=== PATIENT | male | born 1960 | race Hispanic/Latino ===

== ENCOUNTER 2018-01-31 10:22 | Emergency (ER) | payer SELFPAY ==
--- OUTSIDE RECORDS SUMMARY | 2018-01-31 10:24 | XMS REPORT | Clinical Summary ---
:1960 Author Organization [facility] Address [address] [place] [address] Phone Care Team Providers Name Role Phone Unavailable Primary Care Provider Unavailable Allergies No Known Allergies Current Medications Prescription Sig. Disp. Refills Start Date End Date Status metFORMIN Take by mouth 2 Active (GLUCOPHAGE) 500 MG (two) times daily tabletIndications: with breakfast type 2 diabetes and dinner Pt mellitus does not know what dose . aspirin 81 MG Take 1 tablet (81 90 tablet 0 04/22/2017 04/22/2018 Active chewable tablet mg total) by mouth daily. carvedilol (COREG) Take 1 tablet 180 tablet 1 04/21/2017 04/21/2018 Active 3.125 MG tablet (3.125 mg total) by mouth 2 (two) times daily. digoxin (LANOXIN) Take 1 tablet 90 tablet 1 04/22/2017 04/22/2018 Active 0.125 MG tablet (125 mcg total) by mouth daily. furosemide (LASIX) Take 1 tablet (20 90 tablet 1 04/22/2017 04/22/2018 Active 20 MG tablet mg total) by mouth daily. Active Problems Problem Noted Date Congestive heart failure (CHF) (HCC) 04/15/2017 Encounters Date Type Specialty Care Team Description 04/17/2017 Procedure Pass 04/17/2017 Surgery Codie R & L HEART CATH MD Mohsen ONLY - NO ANGIOS 04/15/2017 - Hospital Encounter Intensive Care Reuben Robles systolic 04/21/2017 MD Abran congestive heart failure (HCC) (Primary Dx);NSTEMI (non-ST elevated myocardial infarction) ([facility]);Type 2 diabetes mellitus without complication, without long-term current use of insulin ([facility]);Cardiomyopathy , unspecified type ([facility]) 04/15/2017 Orders Only General Internal Medicine after 01/30/2017 Social History Tobacco Use Types Packs/Day Years Used Date Never Smoker Smokeless Tobacco: Never Used Sex Assigned at Date Recorded Not on file Last Filed Vital Signs Vital Sign Reading Time Taken Blood Pressure 91/62 04/21/2017 7:40 PM [employer] Pulse 110 04/21/2017 7:40 PM [employer] Temperature 37.4 C (99.4 F) 04/21/2017 7:40 PM [employer] Respiratory Rate 22 04/21/2017 7:40 PM [employer] Oxygen Saturation 95% 04/21/2017 7:40 PM [employer] Inhaled Oxygen Concentration - - Weight 71.1 kg (156 lb 12 oz) 04/21/2017 3:00 AM [employer] Height 170.2 cm (5' 7") 04/15/2017 6:00 PM [employer] Body Mass Index 24.55 04/21/2017 3:00 AM [employer] Plan of Treatment Not on file Implants Implanted Type Area Gear Setter Device Expiration Model / Identifier Date Serial / Lot Closure Sys Perclose Progl 6fr [id number] - [id number] Cardiovascular N/A: PEREZ [id number] 05/15/2018 11372-78 / Implanted: Qty: 1 on 04/17/2017 by Mohsen Mackay MD [place] LAB:VASC DEV / Procedures Procedure Name Priority Date/Time Associated Diagnosis Comments R & L HEART CATH ONLY - 04/17/2017 2:30 PM [employer] chest pain NO ANGIOS after 01/30/2017 Results EKG-SCANNED (04/24/2017 12:10 PM)RHYTHM STRIP - SCAN (04/24/2017 12:10 PM) VASCULAR DIAGRAM -SCAN (04/24/2017 12:10 PM)POC-Glucose meter (04/21/2017 5:46 PM)Only the most recent of21 resultswithin the time period is included. Component Value Ref Range POC-Glucose Meter 142 (H)Comment: TESTED AT [address] 70 - 110 mg/[place] [id number] Specimen Performing Laboratory Blood [facility] [address] [address] CBC with platelet count + automated diff (04/21/2017 4:36 AM)Only the most recent of7 resultswithin the time period is included. Component Value Ref Range WBC 7.8 3.5 - 10.5 K/L RBC 4.21 (L) 4.63 - 6.08 M/L Hemoglobin 12.5 (L) 13.7 - 17.5 GM/DL Hematocrit 37.7 (L) 40.1 - 51.0 % MCV 89.5 79.0 - 92.2 fL MCH 29.7 25.7 - 32.2 pg MCHC 33.2 32.3 - 36.5 GM/DL RDW 14.8 (H) 11.6 - 14.4 % Platelets 210 150 - 450 K/CU MM MPV 10.3 9.4 - 12.4 fL nRBC 0 0 - 0 /100 WBC % Neutros 69 % % Lymphs 16 % % Monos 9 % % Eos 1 % % Baso 1 % # Neutros 5.38 1.78 - 5.38 K/L # Lymphs 1.25 (L) 1.32 - 3.57 K/L # Monos 0.66 0.30 - 0.82 K/L # Eos 0.06 0.04 - 0.54 K/L # Baso 0.09 (H) 0.01 - 0.08 K/L Immature Granulocytes-Relative 4 (H) 0 - 1 % Specimen Performing Laboratory Blood [address] [address] CBC with platelet count + automated diff (04/21/2017 4:36 AM)Only the most recent of7 resultswithin the time period is included. Specimen Performing Laboratory Blood Narrative The following orders were created for panel order CBC with platelet count + automated diff. Procedure Abnormality Status --------- ------ CBC with platelet count ...[[id number]]AbnormalFinal result Please view results for these tests on the individual orders. Magnesium (04/21/2017 4:36 AM)Only the most recent of7 resultswithin the time period is included. Component Value Ref Range Magnesium 1.9 1.6 - 2.6 mg/dL Specimen Performing Laboratory Blood [address] [address] Basic metabolic panel (04/21/2017 4:36 AM)Only the most recent of7 resultswithin the time period is included. Component Value Ref Range Sodium 135 (L) 136 - 145 meq/L Potassium 3.8 3.5 - 5.1 meq/L Chloride 106 98 - 107 meq/L CO2 22 22 - 29 meq/L BUN 7 7 - 21 mg/dL Creatinine 0.49 (L) 0.57 - 1.25 mg/dL Glucose 101 70 - 105 mg/dL Calcium 8.4 8.4 - 10.2 mg/dL EGFR 177Comment: ESTIMATED GFR IS NOT ACCURATE mL/min/1.73 sq m CREATININE CLEARANCE IN PREDICTING GLOMERULAR FILTRATION RATE. ESTIMATED GFR IS NOT APPLICABLE FOR DIALYSIS PATIENTS. Specimen Performing Laboratory Blood [facility] [address] [address] MR cardiac without & with IV contrast (04/19/2017 4:29 PM) Specimen Performing Laboratory [employer] RIS Narrative FINAL REPORT Cardiac MRI dated 19 April 2016 INDICATION: This is a 56 year-old male with known ischemic cardiomyopathy presents for assessment. Recent angiography demonstrate no coronary artery disease. This study is performed in order to quantitate left ventricular function, and to determine myocardial viability and damage. TECHNIQUE: Felicia ACHIEVAMRI scanner. Morphologic and dynamic cine imaging were performed in multiple projections before and after contrast administration.Thereafter, gadolinium was administered, which was followed by viability/scar imaging.Finally, flow quantification sequences were performed to determine the degree of valvular dysfunction. Please refer to the contrast sheet scanned in the CoPatient system for the amount and route of contrast given. Scanning blood pressure was 90/66. Patient weighs 155 pounds, with height of 67 inches. Body surface area is approximately 1.82 sq m. FINDINGS: The chest wall and mediastinum appears unremarkable.The pericardium and pulmonary arteries appear normal; no pericardial effusion is identified in the central pulmonary artery is normal in calibre. Limited imaging through the lungs reveals no gross abnormalities; some dependent changes are seen in the lung bases. The cardiac chambers demonstrate normal atrioventricular and ventriculoarterial concordance, and systemic and pulmonary venous return. The thoracic aorta is normal in course, calibre, and contour. There is no evidence of acute aortic pathology, such as dissection, intramural hematoma, or contained rupture. The left ventricle is normal and enlarged with severely global hypokinesis/akinesis.Quantitative values are as follows: WZG=514 cc; PQH=675 cc; stroke volume=63 cc; and ejection fraction=21%. Calculated absolute cardiac output=6.2 liters/min.Absolute left ventricular flwg=198 grams. Index NSQEX=869 cc/sq m confirming left ventricular enlargement. No evidence of hypertrophic cardiomyopathy or left ventricular noncompaction noted. The right ventricle is normal in size with mild systolic dysfunction. Quantitative values are as follows: TWN=248 cc; ESV=97 cc; and ejection fraction=34%. Cine imaging and flow quantification unremarkable mitral and aortic valve function. Trace tricuspid regurgitation is present. Viability/scar imaging reveals no evidence of prior myocardial infarction. However, there is some subtle linear mid myocardial hyperenhancement identified in the basal septum, consistent with interstitial fibrosis, a nonspecific finding, commonly seen in patient with dilated nonischemic cardiomyopathy. Furthermore, this is consistent with raised [place] myocardial T1 in the experimental T1 mapping sequence. There is substantial reduction in left ventricular long axis strain, -4.3% (normal MRI reference value for male is 16.5 + / - 2.2%). Ventricular thrombus is not present. Left atrial enlargement is identified. CONCLUSIONS: 1. The left ventricle is enlarged with severe global systolic dysfunction. Ejection fraction is quantified to be 21%. Quantitative left ventricular functional values are as described above. Viability/scar imaging is normal.There is no evidence of prior myocardial damage. No imaging evidence to suggest left ventricular noncompaction. There is mid myocardial hyperenhancement identified best seen in the basal septum indicating interstitial fibrosis, nonspecific finding in patient with cardiomyopathy. Substantial reduction in left ventricular long axis strain. 2.The right ventricle is normal in size with overall mild systolic dysfunction. Quantitative right ventricular functional veins as described above. 3.Normal aortic and mitral valvular function. 4.Left atrial enlargement. Signed: Niranjan Chand MD Report Verified Date/Time:04/19/2017 16:35:20 Reading Location: [facility] P047 Cardiology MRI Procedure Note Interface, External Ris In - 04/19/2017 4:37 PM COM[employer] FINAL REPORT Cardiac MRI dated 19 April 2016 INDICATION: This is a 56 year-old male with known ischemic cardiomyopathy presents for assessment. Recent angiography demonstrate no coronary artery disease. This study is performed in order to quantitate left ventricular function, and to determine myocardial viability and damage. TECHNIQUE: Felicia DishOpinion MRI scanner. Morphologic and dynamic cine imaging were performed in multiple projections before and after contrast administration. Thereafter, gadolinium was administered, which was followed by viability/scar imaging. Finally, flow quantification sequences were performed to determine the degree of valvular dysfunction. Please refer to the contrast sheet scanned in the EPIC system for the amount and route of contrast given. Scanning blood pressure was 90/66. Patient weighs 155 pounds, with height of 67 inches. Body surface area is approximately 1.82 sq m. FINDINGS: The chest wall and mediastinum appears unremarkable. The pericardium and pulmonary arteries appear normal; no pericardial effusion is identified in the central pulmonary artery is normal in calibre. Limited imaging through the lungs reveals no gross abnormalities; some dependent changes are seen in the lung bases. The cardiac chambers demonstrate normal atrioventricular and ventriculoarterial concordance, and systemic and pulmonary venous return. The thoracic aorta is normal in course, calibre, and contour. There is no evidence of acute aortic pathology, such as dissection, intramural hematoma, or contained rupture. The left ventricle is normal and enlarged with severely global hypokinesis/akinesis. Quantitative values are as follows: YON=262 cc; BLR=306 cc; stroke volume=63 cc; and ejection fraction=21%. Calculated absolute cardiac output=6.2 liters/min. Absolute left ventricular cpva=681 grams. Index YHBMI=417 cc/sq m confirming left ventricular enlargement. No evidence of hypertrophic cardiomyopathy or left ventricular noncompaction noted. The right ventricle is normal in size with mild systolic dysfunction. Quantitative values are as follows: CRE=770 cc; ESV=97 cc; and ejection fraction=34%. Cine imaging and flow quantification unremarkable mitral and aortic valve function. Trace tricuspid regurgitation is present. Viability/scar imaging reveals no evidence of prior myocardial infarction. However, there is some subtle linear mid myocardial hyperenhancement identified in the basal septum, consistent with interstitial fibrosis, a nonspecific finding, commonly seen in patient with dilated nonischemic cardiomyopathy. Furthermore, this is consistent with raised [place] myocardial T1 in the experimental T1 mapping sequence. There is substantial reduction in left ventricular long axis strain, -4.3% (normal MRI reference value for male is 16.5 + / - 2.2%). Ventricular thrombus is not present. Left atrial enlargement is identified. CONCLUSIONS: 1. The left ventricle is enlarged with severe global systolic dysfunction. Ejection fraction is quantified to be 21%. Quantitative left ventricular functional values are as described above. Viability/scar imaging is normal. There is no evidence of prior myocardial damage. No imaging evidence to suggest left ventricular noncompaction. There is mid myocardial hyperenhancement identified best seen in the basal septum indicating interstitial fibrosis, nonspecific finding in patient with cardiomyopathy. Substantial reduction in left ventricular long axis strain. 2. The right ventricle is normal in size with overall mild systolic dysfunction. Quantitative right ventricular functional veins as described above. 3. Normal aortic and mitral valvular function. 4. Left atrial enlargement. Signed: Niranjan Chand MD Report Verified Date/Time: 04/19/2017 16:35:20 Reading Location: [facility] P047 Cardiology MRI IAC CATH REPORT - SCAN (04/18/2017 8:40 PM)ECHOCARDIOGRAM REPORT - SCAN ( 2:50 PM)Transthoracic 2D echo w/ doppler (cw/pw/color) (04/17/2017 11: 02 AM) Component Value Ref Range Ejection Fraction Specimen Performing Laboratory [facility] E[facility] Narrative Transthoracic Echocardiography Report (TTE) Demographics Patient Name MOHR, Date of Study 04/17/2017 MAHAMED [id number] Male Visit Number [id number] Room Number C721 Number Date of Birth2Referring Physician Abran Robles MD Age56 year(s)[employer] Worker Xiomara Douglas [facility] Interpreting [facility] Cardiology Physician Abran Robles MD Procedure Type of Study TTE procedure:2DECHO W DOPPLER(CW/PW/COLOR) (AURY) Indications:Shortness of breath. Clinical History HGB 14.7 HCT 45.3 % CHF, DM Height: 67 inches Weight: 72.12 kg (159 lbs) BSA: 1.83 m^2 BMI: 24.9 kg/m^2 HR: 97 bpm BP: 89/66 mmHg Summary Aortic root size (SInus of Valsalva diameter) is mildly dilated . The right ventricular chamber size and systolic function are within normal limits. Unable to estimate peak systolic PA pressure; inadequate TR velocity signal. No evidence of LV hypertrophy. The left ventricle is chamber size (by vol index) is severely enlarged (male - LVED vol >100ml/m2). The inferior and inferoseptal gil are akinetic. Global LV systolic function severely reduced . LVEF by Huang's method of disk assessment is severely reduced (<20%) . LV diastolic function is indeterminate. LA size is mildly enlarged (35-41 ml/m2) . RA size is normal. Mild aortic regurgitation. Mild mitral regurgitation. Unable to estimate peak systolic PA pressure; inadequate TR velocity signal The estimated RA pressure by IVC dynamics 0-5mmHg . Signature Findings Technical Quality: Technically adequate exam. Rhythm/BPSinus tachycardia during the exam. Left Ventricle No evidence of LV hypertrophy. The left ventricle is chamber size (by vol index) is severely enlarged (male - LVED vol >100ml/m2). The inferior and inferoseptal gil are akinetic. Global LV systolic function severely reduced . LVEF by Huang's method of disk assessment is severely reduced (<20%) . LV diastolic function is indeterminate. Left AtriumLA size is mildly enlarged (35-41 ml/m2) . Right VentricleThe right ventricular chamber size and systolic function are within normal limits. Right Atrium RA size is normal. Aortic Valve Mild AoV cusp thickening. Mild aortic regurgitation. Mitral Valve Normal MV structure. Mild mitral regurgitation. Tricuspid ValveTV structure is normal. Unable to estimate peak systolic PA pressure; inadequate TR velocity signal. Pulmonic Valve Normal PV structure appears normal by available views. A trace of pulmonary regurgitation. AortaAortic root size (SInus of Valsalva diameter) is mildly dilated . Proximal ascending aorta size is normal . PericardiumNo pericardial effusion is visualized. IVC/SVC/PA/PV/PleuralThe estimated RA pressure by IVC dynamics 0-5mmHg . Chambers/Structures Left Atrium LA Dimension: 3.94 cmLA Area: 22.33 cm^2 LA Volume: 66.01 ml LA Vol. Index: 36 ml/m^2 Left Ventricle LVIDd: 6.3 cm LV Septum Diastolic: 0.81 cm LV Septum Systolic: 5.4 cm LV PW Diastolic: 1.06 cm LVEDV Huang's:182.24 ml LVESV Huang's:162.8 ml LVEDVI: 100 ml/m^ 2 LVEF Huang's: 10.7 % LVESVI: 89 ml/m ^2 Aorta Ao Annulus: 3.57 cmAscending Aorta: 3.35 cm Doppler/Quantitative Measurements Mitral Valve MV Peak E-Wave: 0.7 m/sPeak Gradient: 1.95 mmHg MV Efra. 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 Clinical History HGB 14.7 HCT 45.3 % CHF, DM Height: 67 inches Weight: 72.12 kg (159 lbs) BSA: 1.83 m^2 BMI: 24.9 kg/m^2 HR: 97 bpm BP: 89/66 mmHg Summary Aortic root size (SInus of Valsalva diameter) is mildly dilated . The right ventricular chamber size and systolic function are within normal limits. Unable to estimate peak systolic PA pressure; inadequate TR velocity signal. No evidence of LV hypertrophy. The left ventricle is chamber size (by vol index) is severely enlarged (male - LVED vol >100ml/m2). The inferior and inferoseptal gil are akinetic. Global LV systolic function severely reduced . LVEF by Huang's method of disk assessment is severely reduced (<20%) . LV diastolic function is indeterminate. LA size is mildly enlarged (35-41 ml/m2) . RA size is normal. Mild aortic regurgitation. Mild mitral regurgitation. Unable to estimate peak systolic PA pressure; inadequate TR velocity signal The estimated RA pressure by IVC dynamics 0-5mmHg . Signature Findings Technical Quality: Technically adequate exam. Rhythm/BP Sinus tachycardia during the exam. Left Ventricle No evidence of LV hypertrophy. The left ventricle is chamber size (by vol index) is severely enlarged (male - LVED vol >100ml/m2). The inferior and inferoseptal gil are akinetic. Global LV systolic function severely reduced . LVEF by Huang's method of disk assessment is severely reduced (<20%) . LV diastolic function is indeterminate. Left Atrium LA size is mildly enlarged (35-41 ml/m2) . Right Ventricle The right ventricular chamber size and systolic function are within normal limits. Right Atrium RA size is normal. Aortic Valve Mild AoV cusp thickening. Mild aortic regurgitation. Mitral Valve Normal MV structure. Mild mitral regurgitation. Tricuspid Valve TV structure is normal. Unable to estimate peak systolic PA pressure; inadequate TR velocity signal. Pulmonic Valve Normal PV structure appears normal by available views. A trace of pulmonary regurgitation. Aorta Aortic root size (SInus of Valsalva diameter) is mildly dilated . Proximal ascending aorta size is normal . Pericardium No pericardial effusion is visualized. IVC/SVC/PA/PV/Pleural The estimated RA pressure by IVC dynamics 0-5mmHg . Chambers/Structures Left Atrium LA Dimension: 3.94 cm LA Area: 22.33 cm^2 LA Volume: 66.01 ml LA Vol. Index: 36 ml/m^2 Left Ventricle LVIDd: 6.3 cm LV Septum Diastolic: 0.81 cm LV Septum Systolic: 5.4 cm LV PW Diastolic: 1.06 cm LVEDV Huang's:182.24 ml LVESV Huang's:162.8 ml LVEDVI: 100 ml/m^2 LVEF Huang's: 10.7 % LVESVI: 89 ml/m^2 Aorta Ao Annulus: 3.57 cm Ascending Aorta: 3.35 cm Doppler/Quantitative Measurements Mitral Valve MV Peak E-Wave: 0.7 m/s Peak Gradient: 1.95 mmHg MV Efra. Peak: Tissue Doppler E' Septal Velocity: 0.08 m/s E/E': 9.14 Aortic Valve Peak Velocity: 1.2 m/s Mean Velocity: 0.91 m/s Peak Gradient: 5.79 mmHg Mean Gradient: 3.68 mmHg AV VTI: 15.66 cm AV DVI: 0.47 LVOT Peak Velocity: 0.56 m/s Peak Gradient: 1.24 mmHg Mean Velocity: 0.38 m/s Mean Gradient: 0.7 mmHg LVOT VTI: 7.37 cm Manual Differential (04/17/2017 4:08 AM)Only the most recent of2 resultswithin the time period is included. Component Value Ref Range Total Counted WBC Morphology Normal Platelet Morphology Normal RBC Morphology Normal Specimen Performing Laboratory Blood [address] [address] PT/aPTT (04/17/2017 4:08 AM) Component Value Ref Range Protime 13.1 11.7 - 14.7 seconds INR 1.0 <=5.9 PTT 28.6 22.5 - 36.0 seconds Specimen Performing Laboratory Blood [address] [address] Narrative RECOMMENDED COUMADIN/WARFARIN INR THERAPY RANGES STANDARD DOSE: 2.0 - 3.0 Includes: PROPHYLAXIS for venous thrombosis, systemic embolization; TREATMENT for venous thrombosis and/or pulmonary embolus. HIGH RISK: Target INR is 2.5-3.5 for patients with mechanical heart valves. Lipid panel (04/17/2017 4:08 AM) Component Value Ref Range Triglycerides 222 mg/dL Cholesterol 214 mg/dL HDL 29 mg/dL LDL Calculated 141 mg/dL Specimen Performing Laboratory Blood [address] [address] Narrative Triglyceride Reference Range: Low Risk <150 [id number] High Risk 200-499 Very High Risk>=500 Cholesterol Reference Range: Low Risk <200 [id number] High Risk>240 HDL Cholesterol Reference Range: Low Risk >=60 High Risk <40 LDL Cholesterol Reference Range: Optimal<100 Near [id number] [id number] [id number] Very High >=190 Protein, 24 hour urine (04/17/2017 12:16 AM) Component Value Ref Range Protein, 24hr Urine <98 0 - 300 mg/24hr Volume, Urine 1400 ml Protein, Urine <7 0 - 14 mg/dL Specimen Performing Laboratory Urine - Urine, Voided [address] [address] Microalbumin, 24 hour urine (04/17/2017 12:16 AM) Component Value Ref Range Volume, Urine 1400 ml Microalbumin, Urine <0.5 mg/dL Microalb, 24H Ur <7 0 - 30 mg/24 hrs Specimen Performing Laboratory Urine - Urine, Voided [address] [address] Urinalysis, Routine (04/16/2017 1:17 AM) Component Value Ref Range Color, UA Yellow Clarity, UA Clear Specific [place], UA 1.017 1.001 - 1.035 pH, UA 7.0 5.0 - 8.0 Protein, UA Negative Negative Glucose, UA 300 mg/dL (A) Negative Ketones, UA 10 mg/dL (A) Negative Bilirubin, UA Negative Negative Blood, UA Negative Negative Nitrite, UA Negative Negative Leukocytes, UA Negative Negative Urobilinogen, UA 2.0 (H) 0.2 - 1.0 mg/dL RBC, UA <1 /HPF WBC, UA 1 /HPF Squam Epithel, UA <1 /HPF Specimen Source Urine, Voided Specimen Performing Laboratory Urine - Urine, Voided [address] [address] Urine culture (04/16/2017 1:17 AM) Component Value Ref Range Result Result 10-19,000 col/mL Claudia albicans (A) Specimen Performing Laboratory Urine - Urine, Voided [address] [address] TSH/T4 if indicated (04/15/2017 8:51 PM) Component Value Ref Range TSH 1.03 0.35 - 4.94 uIU/mL Specimen Performing Laboratory Blood - [address] [address] Troponin I (04/15/2017 8:51 PM) Component Value Ref Range Troponin I 0.32 (HH) 0.00 - 0.03 ng/mL Specimen Performing Laboratory Blood - [address] [address] Narrative Troponin I (TnI) levels must be interpreted in the context of the presenting symptoms and the clinical findings. Elevated TnI levels indicate myocardial damage, but are not specific for ischemic heart disease. Elevated TnI levels are seen in patients with other cardiac conditions (including myocarditis and congestive heart failure), and slight TnI elevations occur in patients with other conditions, including sepsis, renal failure, acidosis, acute neurological disease, and persistent tachyarrhythmia. Lactic acid, venous, whole blood (04/15/2017 8:51 PM) Component Value Ref Range Lactate, Venous 1.2Comment: Specimen moderately hemolyzed 0.5 - 2.2 mmol/L Specimen Performing Laboratory Blood - Arm, [address] [address] Narrative Effective 08/18/2015: Units/Reference Range Change New: 0.5-2.2 mmol/LPrevious: 5-20 mg/dL Prothrombin time/INR (04/15/2017 8:51 PM) Component Value Ref Range Protime 13.1 11.7 - 14.7 seconds INR 1.0 <=5.9 Specimen Performing Laboratory Blood - Arm, Right [facility] [address] Narrative RECOMMENDED COUMADIN/WARFARIN INR THERAPY RANGES STANDARD DOSE: 2.0 - 3.0 Includes: PROPHYLAXIS for venous thrombosis, systemic embolization; TREATMENT for venous thrombosis and/or pulmonary embolus. HIGH RISK: Target INR is 2.5-3.5 for patients with mechanical heart valves. B-type Natriuretic Factor (BNP) (04/15/2017 8:51 PM) Component Value Ref Range BNP 825 (H) 0 - 100 pg/mL Specimen Performing Laboratory Blood - Arm, [address] [address] Hemoglobin A1c (04/15/2017 8:51 PM) Component Value Ref Range Hemoglobin A1C 9.2 (H) 4.3 - 6.1 % Specimen Performing Laboratory Blood - Arm, [address] [address] Hepatic function panel (04/15/2017 8:51 PM) Component Value Ref Range Protein, Total 5.9 (L) 6.0 - 8.3 gm/dL Albumin 3.2 (L) 3.5 - 5.0 g/dL Total Bilirubin 1.1 0.2 - 1.2 mg/dL Bilirubin, Direct 0.3 0.1 - 0.5 mg/dL Alkaline Phosphatase 105 40 - 150 U/L AST 13 5 - 34 U/L ALT 37 6 - 55 U/L Specimen Performing Laboratory Blood - Arm, [address] [address] Blood culture (04/15/2017 8:50 PM)Only the most recent of2 resultswithin the time period is included. Component Value Ref Range Result No growth in 5 days Specimen Performing Laboratory Blood - Arm, [address] [address] ECG 12 lead (04/15/2017 8:06 PM) Specimen Performing Laboratory GE MUSE Narrative Ventricular Rate 107 BPM Atrial Rate 107 BPM P-R Interval 130 ms QRS Duration 86 ms Q-T Interval 360 ms QTC Calculation(Bazett) 480 ms P [place] 35 degrees R [place] -20 degrees T [place] [address] & T wave abnormality, consider lateral ischemia Abnormal ECG No previous ECGs available Confirmed by Daphney SULLIVAN MICHAEL ([id number]) on 04/17/2017 9:49:04 AM Procedure Note Interface, External Ris In - 04/17/2017 9:49 AM COMPUTER [employer]IDED DRAFTER Ventricular Rate 107 BPM Atrial Rate 107 BPM P-R Interval 130 ms QRS Duration 86 ms Q-T Interval 360 ms QTC Calculation(Bazett) 480 ms P [place] 35 degrees R [place] -20 degrees T [place] [address] & T wave abnormality, consider lateral ischemia Abnormal ECG No previous ECGs available Confirmed by Daphney SULLIVAN MICHAEL ([id number]) on 04/17/2017 9:49:04 AM XR chest 1 view portable / bedside (04/15/2017 7:45 PM) Specimen Performing Laboratory GE RIS Narrative FINAL REPORT History: Shortness of breath. Comparison: None. Findings: A single view of the chest is submitted. The cardiac silhouette is prominent in size but magnified by low lung volumes and portable technique. There is central pulmonary vascular congestion. Bilateral interstitial and patchy mid and lower lung airspace opacities may reflect a combination of atelectasis and edema but pneumonitis should be excluded clinically. A small right pleural effusion is suspected. There is no pneumothorax or acute bony abnormality. Signed: Melissa Hook MD Report Verified Date/Time:04/15/2017 21:06:26 Reading Location: [address] Reading Room Procedure Note Interface, External Ris In - 04/15/2017 9:08 PM COMPUTER [employer]RAFTER FINAL REPORT History: Shortness of breath. Comparison: None. Findings: A single view of the chest is submitted. The cardiac silhouette is prominent in size but magnified by low lung volumes and portable technique. There is central pulmonary vascular congestion. Bilateral interstitial and patchy mid and lower lung airspace opacities may reflect a combination of atelectasis and edema but pneumonitis should be excluded clinically. A small right pleural effusion is suspected. There is no pneumothorax or acute bony abnormality. Signed: Melissa Hook MD Report Verified Date/Time: 04/15/2017 21:06:26 Reading Location: [address] Reading Room after 01/30/2017
--- OUTSIDE RECORDS SUMMARY | 2018-01-31 10:25 | XMS REPORT ---
:1960 [facility] Address [address] [place] [address] [address]. [address] [place] [address] Care Team Providers Name Role Phone ANASTASIIA ROMERO Unavailable Unavailable Problems This patient has no known problems. Allergies, Adverse Reactions, Alerts This patient has no known allergies or adverse reactions. Medications This patient has no known medications. Results Test Description Test Time Test Comments Text Results Atomic Results Result Comments POCT-GLUCOSE METER 2017-04-21 17:53:00 Test Item Value Reference Range Comments POC-GLUCOSE METER (BEAKER) (test 142 mg/dL 70-110 TESTED AT [address] myun=3501) [facility] [address] POCT-GLUCOSE [id number] 15:28:00 Test Item Value Reference Range Comments POC-GLUCOSE METER (BEAKER) 149 mg/dL 70-110 TESTED AT [address] (test fnhe=8457) [facility] [address] [id number] 06:40:00 Test Item Value Reference Range Comments MAGNESIUM (BEAKER) (test jivo=228) 1.9 mg/dL 1.6-2.6 BASIC METABOLIC [id number] 06:40:00 Test Item Value Reference Range Comments SODIUM (BEAKER) (test 135 meq/L 136-145 zacg=837) POTASSIUM (BEAKER) (test 3.8 meq/L 3.5-5.1 qbks=877) CHLORIDE (BEAKER) (test 106 meq/L 98-107 zwgr=288) CO2 (BEAKER) (test 22 meq/L 22-29 yqub=549) BLOOD UREA NITROGEN 7 mg/dL 7-21 (BEAKER) (test bsxh=858) CREATININE (BEAKER) (test 0.49 mg/dL 0.57-1.25 uuvs=921) GLUCOSE RANDOM (BEAKER) 101 mg/dL 70-105 (test tgeo=097) CALCIUM (BEAKER) (test 8.4 mg/dL 8.4-10.2 reix=536) EGFR (BEAKER) (test 177 mL/min/1.73 sq m ESTIMATED GFR IS NOT qzwh=1956) ACCURATE CREATININE CLEARANCE IN PREDICTING GLOMERULAR FILTRATION RATE. ESTIMATED GFR IS NOT APPLICABLE FOR DIALYSIS PATIENTS. CBC W/PLT COUNT & AUTO [id number] 05:35:00 Test Item Value Reference Range Comments WHITE BLOOD CELL COUNT (BEAKER) (test vulf=609) 7.8 K/ L 3.5-10.5 RED BLOOD CELL COUNT (BEAKER) (test wwvf=087) 4.21 M/ L 4.63-6.08 HEMOGLOBIN (BEAKER) (test osuc=000) 12.5 GM/DL 13.7-17.5 HEMATOCRIT (BEAKER) (test smcw=635) 37.7 % 40.1-51.0 MEAN CORPUSCULAR VOLUME (BEAKER) (test kenz=422) 89.5 fL 79.0-92.2 MEAN CORPUSCULAR HEMOGLOBIN (BEAKER) (test 29.7 pg 25.7-32.2 dhrd=765) MEAN CORPUSCULAR HEMOGLOBIN CONC (BEAKER) (test 33.2 GM/DL 32.3-36.5 wycf=103) RED CELL DISTRIBUTION WIDTH (BEAKER) (test 14.8 % 11.6-14.4 gffn=423) PLATELET COUNT (BEAKER) (test tgqj=997) 210 K/CU MM 150-450 MEAN PLATELET VOLUME (BEAKER) (test rxkx=324) 10.3 fL 9.4-12.4 NUCLEATED RED BLOOD CELLS (BEAKER) (test 0 /100 WBC 0-0 iiad=330) NEUTROPHILS RELATIVE PERCENT (BEAKER) (test 69 % gqef=368) LYMPHOCYTES RELATIVE PERCENT (BEAKER) (test 16 % btmu=322) MONOCYTES RELATIVE PERCENT (BEAKER) (test 9 % gjvd=448) EOSINOPHILS RELATIVE PERCENT (BEAKER) (test 1 % ffld=080) BASOPHILS RELATIVE PERCENT (BEAKER) (test 1 % yzuf=210) NEUTROPHILS ABSOLUTE COUNT (BEAKER) (test 5.38 K/ L 1.78-5.38 yquu=422) LYMPHOCYTES ABSOLUTE COUNT (BEAKER) (test 1.25 K/ L 1.32-3.57 bibf=965) MONOCYTES ABSOLUTE COUNT (BEAKER) (test 0.66 K/ L 0.30-0.82 fwey=229) EOSINOPHILS ABSOLUTE COUNT (BEAKER) (test 0.06 K/ L 0.04-0.54 njtr=931) BASOPHILS ABSOLUTE COUNT (BEAKER) (test 0.09 K/ L 0.01-0.08 mqgh=878) IMMATURE GRANULOCYTES-RELATIVE PERCENT (BEAKER) 4 % 0-1 (test fdmj=5245) BLOOD [id number] 05:01:00 Test Item Value Reference Range Comments CULTURE (BEAKER) (test hskq=1383) No growth in 5 days BLOOD [id number] 05:01:00 Test Item Value Reference Range Comments CULTURE (BEAKER) (test rrrh=5191) No growth in 5 days POCT-GLUCOSE [id number] 20:57:00 Test Item Value Reference Range Comments POC-GLUCOSE METER (BEAKER) 262 mg/dL 70-110 TESTED AT [address] (test jdnu=6566) [place] [address] POCT-GLUCOSE [id number] 18:50:00 Test Item Value Reference Range Comments POC-GLUCOSE METER (BEAKER) 102 mg/dL 70-110 TESTED AT [address] (test nrue=7890) [place] [address] POCT-GLUCOSE [id number] 12:47:00 Test Item Value Reference Range Comments POC-GLUCOSE METER (BEAKER) 190 mg/dL 70-110 TESTED AT [address] (test hjbr=2609) [place] [address] [id number] 05:24:00 Test Item Value Reference Range Comments MAGNESIUM (BEAKER) (test nkir=752) 2.1 mg/dL 1.6-2.6 BASIC METABOLIC [id number] 05:24:00 Test Item Value Reference Range Comments SODIUM (BEAKER) (test 134 meq/L 136-145 vsyh=843) POTASSIUM (BEAKER) (test 3.7 meq/L 3.5-5.1 vcxf=390) CHLORIDE (BEAKER) (test 105 meq/L 98-107 scol=670) CO2 (BEAKER) (test 24 meq/L 22-29 cjel=240) BLOOD UREA NITROGEN 7 mg/dL 7-21 (BEAKER) (test zmmp=420) CREATININE (BEAKER) (test 0.52 mg/dL 0.57-1.25 ltdn=113) GLUCOSE RANDOM (BEAKER) 106 mg/dL 70-105 (test qznd=754) CALCIUM (BEAKER) (test 8.0 mg/dL 8.4-10.2 oped=219) EGFR (BEAKER) (test 165 mL/min/1.73 sq m ESTIMATED GFR IS NOT ejqb=5793) ACCURATE CREATININE CLEARANCE IN PREDICTING GLOMERULAR FILTRATION RATE. ESTIMATED GFR IS NOT APPLICABLE FOR DIALYSIS PATIENTS. CBC W/PLT COUNT & AUTO [id number] 04:52:00 Test Item Value Reference Range Comments WHITE BLOOD CELL COUNT (BEAKER) (test lnxl=248) 7.7 K/ L 3.5-10.5 RED BLOOD CELL COUNT (BEAKER) (test pbbd=919) 4.14 M/ L 4.63-6.08 HEMOGLOBIN (BEAKER) (test xrlt=070) 12.4 GM/DL 13.7-17.5 HEMATOCRIT (BEAKER) (test dsex=808) 37.4 % 40.1-51.0 MEAN CORPUSCULAR VOLUME (BEAKER) (test jmuc=018) 90.3 fL 79.0-92.2 MEAN CORPUSCULAR HEMOGLOBIN (BEAKER) (test 30.0 pg 25.7-32.2 zmbe=333) MEAN CORPUSCULAR HEMOGLOBIN CONC (BEAKER) (test 33.2 GM/DL 32.3-36.5 uamq=476) RED CELL DISTRIBUTION WIDTH (BEAKER) (test 14.9 % 11.6-14.4 scrx=182) PLATELET COUNT (BEAKER) (test kqal=874) 202 K/CU MM 150-450 MEAN PLATELET VOLUME (BEAKER) (test kfog=206) 9.9 fL 9.4-12.4 NUCLEATED RED BLOOD CELLS (BEAKER) (test 0 /100 WBC 0-0 pjtv=903) NEUTROPHILS RELATIVE PERCENT (BEAKER) (test 72 % weee=168) LYMPHOCYTES RELATIVE PERCENT (BEAKER) (test 13 % eunk=652) MONOCYTES RELATIVE PERCENT (BEAKER) (test 7 % onau=719) EOSINOPHILS RELATIVE PERCENT (BEAKER) (test 1 % lzox=836) BASOPHILS RELATIVE PERCENT (BEAKER) (test 1 % ltwh=159) NEUTROPHILS ABSOLUTE COUNT (BEAKER) (test 5.58 K/ L 1.78-5.38 vaby=001) LYMPHOCYTES ABSOLUTE COUNT (BEAKER) (test 1.03 K/ L 1.32-3.57 fjhy=366) MONOCYTES ABSOLUTE COUNT (BEAKER) (test 0.54 K/ L 0.30-0.82 mukw=240) EOSINOPHILS ABSOLUTE COUNT (BEAKER) (test 0.11 K/ L 0.04-0.54 tufz=092) BASOPHILS ABSOLUTE COUNT (BEAKER) (test 0.06 K/ L 0.01-0.08 tprd=288) IMMATURE GRANULOCYTES-RELATIVE PERCENT (BEAKER) 5 % 0-1 (test qhdb=4427) POCT-GLUCOSE [id number] 22:11:00 Test Item Value Reference Range Comments POC-GLUCOSE METER (BEAKER) 131 mg/dL 70-110 TESTED AT [place] [id number] [facility] (test zcco=8530) [place] [address] POCT-GLUCOSE [id number] 17:52:00 Test Item Value Reference Range Comments POC-GLUCOSE METER (BEAKER) 113 mg/dL 70-110 TESTED AT [address] (test euut=4773) [facility] [address] MR, CARDIAC, [id number] 16:35:00Reason for exam:->viabilityFINAL REPORT Cardiac MRI dated 19 April 2016 INDICATION: This is a 56 year-old male with known ischemic cardiomyopathy presents for assessment. Recent angiography demonstrate no coronary artery disease. This study is performed in order to quantitate left ventricular function,and to determine myocardial viability and damage. TECHNIQUE: [employer] MRI scanner. Morphologic and dynamic cine imaging [...] global hypokinesis/akinesis. Quantitative values are as follows: CCD=403 cc; TJA=374 cc; stroke volume=63 cc; and ejection fraction=21% . Calculated absolute cardiac output=6.2 liters/min. Absolute left ventricular ntcd=443 grams. Index ZFCLP=503 cc/sq m confirming left ventricular enlargement. No evidence of hypertrophic cardiomyopathy or left ventricular noncompaction noted. The right ventricle is normal in size with mild systolic dysfunction. Quantitative values are as follows: DWB=633 cc; ESV=97 cc; and ejection fraction=34%. Cine [...] cardiomyopathy. Furthermore, this is consistent with [place] myocardial T1 in the experimental T1 mapping [...] left ventricular functional values are as described above.Viability /scar imaging is normal. There is no evidence [...] 4. Left atrial enlargement. Signed: Niranjan Chand MDReport Verified Date/Time: 04/19/2017 16:35:20 Reading Location: [place] [address] Cardiology MRI POCT-GLUCOSE [id number] 13:41:00 Test Item Value Reference Range Comments POC-GLUCOSE METER (BEAKER) 131 mg/dL 70-[address] [facility] [address] [facility] (test ksyv=9219) [facility] [address] POCT-GLUCOSE [id number] 08:39:00 Test Item Value Reference Range Comments POC-GLUCOSE METER (BEAKER) 127 mg/dL 70-[address] [facility] [address] [facility] (test gvri=7518) [facility] [address] [id number] 06:51:00 Test Item Value Reference Range Comments MAGNESIUM (BEAKER) (test duxo=594) 1.8 mg/dL 1.6-2.6 BASIC METABOLIC [id number] 06:51:00 Test Item Value Reference Range Comments SODIUM (BEAKER) (test 136 meq/L 136-145 wkmh=105) POTASSIUM (BEAKER) (test 4.2 meq/L 3.5-5.1 depz=669) CHLORIDE (BEAKER) (test 107 meq/L 98-107 nkxl=880) CO2 (BEAKER) (test 24 meq/L 22-29 fqtv=930) BLOOD UREA NITROGEN 6 mg/dL 7-21 (BEAKER) (test vuqo=655) CREATININE (BEAKER) (test 0.53 mg/dL 0.57-1.25 fslz=858) GLUCOSE RANDOM (BEAKER) 111 mg/dL 70-105 (test teyg=869) CALCIUM (BEAKER) (test 8.1 mg/dL 8.4-10.2 wyad=080) EGFR (BEAKER) (test 161 mL/min/1.73 sq m ESTIMATED GFR IS NOT qdii=2169) ACCURATE CREATININE CLEARANCE IN PREDICTING GLOMERULAR FILTRATION RATE. ESTIMATED GFR IS NOT APPLICABLE FOR DIALYSIS PATIENTS. CBC W/PLT COUNT & AUTO [id number] 05:57:00 Test Item Value Reference Range Comments WHITE BLOOD CELL COUNT (BEAKER) (test fhmx=831) 8.2 K/ L 3.5-10.5 RED BLOOD CELL COUNT (BEAKER) (test wbzk=979) 4.27 M/ L 4.63-6.08 HEMOGLOBIN (BEAKER) (test afey=823) 12.7 GM/DL 13.7-17.5 HEMATOCRIT (BEAKER) (test notg=452) 38.7 % 40.1-51.0 MEAN CORPUSCULAR VOLUME (BEAKER) (test oqqy=968) 90.6 fL 79.0-92.2 MEAN CORPUSCULAR HEMOGLOBIN (BEAKER) (test 29.7 pg 25.7-32.2 gxlp=490) MEAN CORPUSCULAR HEMOGLOBIN CONC (BEAKER) (test 32.8 GM/DL 32.3-36.5 isba=314) RED CELL DISTRIBUTION WIDTH (BEAKER) (test 14.9 % 11.6-14.4 gtnb=701) PLATELET COUNT (BEAKER) (test magu=461) 207 K/CU MM 150-450 MEAN PLATELET VOLUME (BEAKER) (test wnpo=178) 10.2 fL 9.4-12.4 NUCLEATED RED BLOOD CELLS (BEAKER) (test 0 /100 WBC 0-0 ttih=048) NEUTROPHILS RELATIVE PERCENT (BEAKER) (test 72 % vsxq=061) LYMPHOCYTES RELATIVE PERCENT (BEAKER) (test 14 % hwwn=156) MONOCYTES RELATIVE PERCENT (BEAKER) (test 7 % mkrl=517) EOSINOPHILS RELATIVE PERCENT (BEAKER) (test 2 % szpx=779) BASOPHILS RELATIVE PERCENT (BEAKER) (test 1 % gxju=450) NEUTROPHILS ABSOLUTE COUNT (BEAKER) (test 5.92 K/ L 1.78-5.38 qicu=900) LYMPHOCYTES ABSOLUTE COUNT (BEAKER) (test 1.11 K/ L 1.32-3.57 wffx=450) MONOCYTES ABSOLUTE COUNT (BEAKER) (test 0.55 K/ L 0.30-0.82 alti=434) EOSINOPHILS ABSOLUTE COUNT (BEAKER) (test 0.13 K/ L 0.04-0.54 bwjd=853) BASOPHILS ABSOLUTE COUNT (BEAKER) (test 0.09 K/ L 0.01-0.08 wsgk=876) IMMATURE GRANULOCYTES-RELATIVE PERCENT (BEAKER) 5 % 0-1 (test iuel=4396) POCT-GLUCOSE [id number] 21:08:00 Test Item Value Reference Range Comments POC-GLUCOSE METER (BEAKER) 195 mg/dL 70-110 TESTED AT [address] (test kmkh=4183) [facility] [address] POCT-GLUCOSE [id number] 18:00:00 Test Item Value Reference Range Comments POC-GLUCOSE METER (BEAKER) 175 mg/dL 70-110 TESTED AT [address] (test wnpk=2233) [facility] [address] POCT-GLUCOSE [id number] 12:45:00 Test Item Value Reference Range Comments POC-GLUCOSE METER (BEAKER) 183 mg/dL 70-110 TESTED AT [address] (test oxob=3799) [facility] [address] POCT-GLUCOSE [id number] 08:34:00 Test Item Value Reference Range Comments POC-GLUCOSE METER (BEAKER) 127 mg/dL 70-110 TESTED AT [address] (test uffu=3901) [facility] [address] PROTEIN, 24 HOUR [id number] 08:28:00 Test Item Value Reference Range Comments PROTEIN, 24HR URINE (BEAKER) (test wraw=2523) < mg/24hr 0-300 VOLUME, TOTAL (BEAKER) (test hbio=4208) 1400 ml PROTEIN, URINE (BEAKER) (test iugk=0254) < mg/dL 0-14 MICROALBUMIN, 24 HOUR [id number] 08:24:00 Test Item Value Reference Range Comments VOLUME, TOTAL (BEAKER) (test mmmm=7505) 1400 ml MICROALBUMIN URINE (BEAKER) (test enmc=1646) < mg/dL MICROALBUMIN 24 HOUR URINE (BEAKER) (test < mg/24 hrs 0-30 jsxf=691) URINE [id number] 07:44:00 Test Item Value Reference Range Comments CULTURE (BEAKER) (test 10-19,000 col/mL Claudia ktfv=8398) albicans [id number] 05:03:00 Test Item Value Reference Range Comments MAGNESIUM (BEAKER) (test 1.8 mg/dL 1.6-2.6 Specimen slightly hemolyzed hmkc=436) BASIC METABOLIC [id number] 05:03:00 Test Item Value Reference Range Comments SODIUM (BEAKER) (test 134 meq/L 136-145 tdwq=495) POTASSIUM (BEAKER) (test 4.3 meq/L 3.5-5.1 Specimen slightly wmok=474) hemolyzed CHLORIDE (BEAKER) (test 104 meq/L 98-107 vjht=555) CO2 (BEAKER) (test 24 meq/L 22-29 cwsj=923) BLOOD UREA NITROGEN 9 mg/dL 7-21 (BEAKER) (test fyfq=297) CREATININE (BEAKER) (test 0.55 mg/dL 0.57-1.25 Specimen slightly iups=298) hemolyzed GLUCOSE RANDOM (BEAKER) 104 mg/dL 70-105 (test cjha=674) CALCIUM (BEAKER) (test 8.1 mg/dL 8.4-10.2 mzfy=766) EGFR (BEAKER) (test 155 mL/min/1.73 sq m ESTIMATED GFR IS NOT rocf=1252) ACCURATE CREATININE CLEARANCE IN PREDICTING GLOMERULAR FILTRATION RATE. ESTIMATED GFR IS NOT APPLICABLE FOR DIALYSIS PATIENTS. CBC W/PLT COUNT & AUTO [id number] 04:09:00 Test Item Value Reference Range Comments WHITE BLOOD CELL COUNT (BEAKER) (test oquy=984) 8.9 K/ L 3.5-10.5 RED BLOOD CELL COUNT (BEAKER) (test fmil=754) 4.56 M/ L 4.63-6.08 HEMOGLOBIN (BEAKER) (test ghbh=862) 13.5 GM/DL 13.7-17.5 HEMATOCRIT (BEAKER) (test rtfv=992) 41.6 % 40.1-51.0 MEAN CORPUSCULAR VOLUME (BEAKER) (test qacb=304) 91.2 fL 79.0-92.2 MEAN CORPUSCULAR HEMOGLOBIN (BEAKER) (test 29.6 pg 25.7-32.2 ukfm=577) MEAN CORPUSCULAR HEMOGLOBIN CONC (BEAKER) (test 32.5 GM/DL 32.3-36.5 ciec=693) RED CELL DISTRIBUTION WIDTH (BEAKER) (test 15.0 % 11.6-14.4 qcnu=456) PLATELET COUNT (BEAKER) (test bznc=288) 217 K/CU MM 150-450 MEAN PLATELET VOLUME (BEAKER) (test bjhi=970) 9.9 fL 9.4-12.4 NUCLEATED RED BLOOD CELLS (BEAKER) (test 0 /100 WBC 0-0 hvdf=589) NEUTROPHILS RELATIVE PERCENT (BEAKER) (test 74 % jhct=014) LYMPHOCYTES RELATIVE PERCENT (BEAKER) (test 13 % jqjh=043) MONOCYTES RELATIVE PERCENT (BEAKER) (test 5 % lmec=843) EOSINOPHILS RELATIVE PERCENT (BEAKER) (test 1 % dxri=706) BASOPHILS RELATIVE PERCENT (BEAKER) (test 1 % teds=800) NEUTROPHILS ABSOLUTE COUNT (BEAKER) (test 6.60 K/ L 1.78-5.38 nbpr=831) LYMPHOCYTES ABSOLUTE COUNT (BEAKER) (test 1.16 K/ L 1.32-3.57 nkcg=324) MONOCYTES ABSOLUTE COUNT (BEAKER) (test 0.48 K/ L 0.30-0.82 inmr=776) EOSINOPHILS ABSOLUTE COUNT (BEAKER) (test 0.10 K/ L 0.04-0.54 lggy=533) BASOPHILS ABSOLUTE COUNT (BEAKER) (test 0.07 K/ L 0.01-0.08 fmws=732) IMMATURE GRANULOCYTES-RELATIVE PERCENT (BEAKER) 5 % 0-1 (test dtmp=8944) POCT-GLUCOSE [id number] 21:03:00 Test Item Value Reference Range Comments POC-GLUCOSE METER (BEAKER) 198 mg/dL 70-110 TESTED AT [address] (test ofyq=6614) [place] [address] POCT-GLUCOSE [id number] 16:56:00 Test Item Value Reference Range Comments POC-GLUCOSE METER (BEAKER) 126 mg/dL 70-110 TESTED AT [address] (test qjgq=7898) [place] [id number] CBC W/PLT COUNT & AUTO [id number] 13:38:00 Test Item Value Reference Range Comments WHITE BLOOD CELL COUNT (BEAKER) (test ztrw=707) 9.1 K/ L 3.5-10.5 RED BLOOD CELL COUNT (BEAKER) (test oigf=009) 4.96 M/ L 4.63-6.08 HEMOGLOBIN (BEAKER) (test mqyw=849) 14.7 GM/DL 13.7-17.5 HEMATOCRIT (BEAKER) (test ooyd=420) 45.3 % 40.1-51.0 MEAN CORPUSCULAR VOLUME (BEAKER) (test glqm=825) 91.3 fL 79.0-92.2 MEAN CORPUSCULAR HEMOGLOBIN (BEAKER) (test 29.6 pg 25.7-32.2 umpo=219) MEAN CORPUSCULAR HEMOGLOBIN CONC (BEAKER) (test 32.5 GM/DL 32.3-36.5 thvu=450) RED CELL DISTRIBUTION WIDTH (BEAKER) (test 15.1 % 11.6-14.4 rird=478) PLATELET COUNT (BEAKER) (test dkyx=273) 237 K/CU MM 150-450 MEAN PLATELET VOLUME (BEAKER) (test cczb=218) 9.7 fL 9.4-12.4 NUCLEATED RED BLOOD CELLS (BEAKER) (test 0 /100 WBC 0-0 haad=671) NEUTROPHILS RELATIVE PERCENT (BEAKER) (test 72 % jkpv=438) LYMPHOCYTES RELATIVE PERCENT (BEAKER) (test 15 % tgyn=097) MONOCYTES RELATIVE PERCENT (BEAKER) (test 5 % brdn=551) EOSINOPHILS RELATIVE PERCENT (BEAKER) (test 1 % gzls=480) BASOPHILS RELATIVE PERCENT (BEAKER) (test 1 % timi=419) NEUTROPHILS ABSOLUTE COUNT (BEAKER) (test 6.54 K/ L 1.78-5.38 lhji=249) LYMPHOCYTES ABSOLUTE COUNT (BEAKER) (test 1.34 K/ L 1.32-3.57 uhnf=537) MONOCYTES ABSOLUTE COUNT (BEAKER) (test 0.46 K/ L 0.30-0.82 ywdz=900) EOSINOPHILS ABSOLUTE COUNT (BEAKER) (test 0.11 K/ L 0.04-0.54 nfrj=483) BASOPHILS ABSOLUTE COUNT (BEAKER) (test 0.08 K/ L 0.01-0.08 jlmx=849) IMMATURE GRANULOCYTES-RELATIVE PERCENT (BEAKER) 6 % 0-1 (test whzd=5736) (MANUAL DIFFERENTIAL)2017-04-17 13:38:00 Test Item Value Reference Range Comments TOTAL COUNTED (BEAKER) (test whfl=3846) WBC MORPHOLOGY (BEAKER) (test kaft=934) Normal PLT MORPHOLOGY (BEAKER) (test zrlo=608) Normal RBC MORPHOLOGY (BEAKER) (test kwls=078) Normal LIPID [id number] 13:17:00 Test Item Value Reference Range Comments TRIGLYCERIDES (BEAKER) (test fjhp=319) 222 mg/dL CHOLESTEROL (BEAKER) (test jdsj=093) 214 mg/dL HDL CHOLESTEROL (BEAKER) (test rops=657) 29 mg/dL LDL CHOLESTEROL CALCULATED (BEAKER) (test 141 mg/dL hvub=353) Triglyceride Reference Range: Low Risk <150 Borderline 150- 199 High Risk 200-499 Very High Risk >=500Cholesterol Reference Range: Low Risk <200 Borderline 200-239 High Risk > 240HDL Cholesterol Reference Range: Low Risk >=60 High Risk <40LDL Cholesterol Reference Range: Optimal <100 Near Optimal 100-129 Borderline 130-159 High 160-189 Very High >=190POCT-GLUCOSE [id number] 08:05:00 Test Item Value Reference Range Comments POC-GLUCOSE METER (BEAKER) 129 mg/dL 70-[address] [facility] [address] [facility] (test rglc=4010) [facility] [address] [id number] 04:40:00 Test Item Value Reference Range Comments MAGNESIUM (BEAKER) (test nnoi=677) 2.0 mg/dL 1.6-2.6 BASIC METABOLIC [id number] 04:40:00 Test Item Value Reference Range Comments SODIUM (BEAKER) (test 137 meq/L 136-145 zhds=816) POTASSIUM (BEAKER) (test 4.5 meq/L 3.5-5.1 xlmx=972) CHLORIDE (BEAKER) (test 101 meq/L 98-107 qicj=679) CO2 (BEAKER) (test 30 meq/L 22-29 djcg=535) BLOOD UREA NITROGEN 13 mg/dL 7-21 (BEAKER) (test uqin=158) CREATININE (BEAKER) (test 0.66 mg/dL 0.57-1.25 zeku=925) GLUCOSE RANDOM (BEAKER) 110 mg/dL 70-105 (test pxno=511) CALCIUM (BEAKER) (test 8.8 mg/dL 8.4-10.2 plkd=953) EGFR (BEAKER) (test 125 mL/min/1.73 sq m ESTIMATED GFR IS NOT dnsr=8104) ACCURATE CREATININE CLEARANCE IN PREDICTING GLOMERULAR FILTRATION RATE. ESTIMATED GFR IS NOT APPLICABLE FOR DIALYSIS PATIENTS. [id number] 04:27:00 Test Item Value Reference Range Comments PROTIME (BEAKER) (test rfgn=499) 13.1 seconds 11.7-14.7 INR (BEAKER) (test hlqj=647) 1.0 <=5.9 PARTIAL THROMBOPLASTIN TIME (BEAKER) (test 28.6 seconds 22.5-36.0 hrkm=840) RECOMMENDED COUMADIN/WARFARIN INR THERAPY RANGESSTANDARD DOSE: 2.0 - 3.0 Includes: PROPHYLAXIS forvenous thrombosis, systemic embolization; TREATMENT for venous thrombosis and/or pulmonary embolus.HIGH RISK: Target INR is 2.5-3.5 for patients with mechanical heart valves.POCT-GLUCOSE [id number] 21:33:00 Test Item Value Reference Range Comments POC-GLUCOSE METER (BEAKER) 223 mg/dL 70-110 TESTED AT [address] (test iula=9912) [place] [id number] POCT-GLUCOSE [id number] 18:07:00 Test Item Value Reference Range Comments POC-GLUCOSE METER (BEAKER) 114 mg/dL 70-110 TESTED AT [address] (test bscp=9716) [place] [id number] (MANUAL DIFFERENTIAL)[id number] 15:42:00 Test Item Value Reference Range Comments NEUTROPHILS - REL (DIFF) (BEAKER) (test 74 % bexg=0974) LYMPHOCYTES - REL (DIFF) (BEAKER) (test 11 % qcvz=2767) MONOCYTES - REL (DIFF) (BEAKER) (test kaws=1616) 8 % METAMYELOCYTES-REL (DIFF) (BEAKER) (test 1 % 0-0 axwo=934) MYELOCYTES-REL (DIFF) (BEAKER) (test weci=1021) 1 % 0-0 BANDS - REL (DIFF) (BEAKER) (test fnis=4899) 5 % 0-10 NEUTROPHILS - ABS (DIFF) (BEAKER) (test 6.81 K/ L 1.80-8.00 yxhu=3560) LYMPHOCYTES - ABS (DIFF) (BEAKER) (test 1.01 K/ L 1.48-4.50 lxza=0546) MONOCYTES - ABS (DIFF) (BEAKER) (test zvwy=0786) 0.74 K/ L 0.00-1.30 METAMYELOCTYES - ABS (DIFF) (BEAKER) (test 0.09 K/ L 0.00-0.00 ixoj=722) BANDS-ABS (DIFF) (BEAKER) (test nuls=2318) 0.5 K/ L 0.0-0.8 MYELOCYTES-ABS (DIFF) (BEAKER) (test vtvy=5966) 0.09 K/ L 0.00-0.00 TOTAL COUNTED (BEAKER) (test aghe=9187) 100 BANDS + SEGMENTED NEUTROPHILS (BEAKER) (test 7.27 nqdx=1993) WBC MORPHOLOGY (BEAKER) (test ovwr=308) Normal PLT MORPHOLOGY (BEAKER) (test vnfu=932) Normal POIKILOCYTES (BEAKER) (test nccj=329) 2+ moderate POLYCHROMATOPHILLIC RBCS(BEAKER) (test rano=620) 1+ few CBC W/PLT COUNT & AUTO [id number] 15:41:00 Test Item Value Reference Range Comments WHITE BLOOD CELL COUNT (BEAKER) (test gyjm=846) 9.2 K/ L 3.5-10.5 RED BLOOD CELL COUNT (BEAKER) (test ykpc=480) 4.81 M/ L 4.63-6.08 HEMOGLOBIN (BEAKER) (test wppp=487) 14.1 GM/DL 13.7-17.5 HEMATOCRIT (BEAKER) (test jsmj=659) 44.0 % 40.1-51.0 MEAN CORPUSCULAR VOLUME (BEAKER) (test amni=486) 91.5 fL 79.0-92.2 MEAN CORPUSCULAR HEMOGLOBIN (BEAKER) (test 29.3 pg 25.7-32.2 yclq=634) MEAN CORPUSCULAR HEMOGLOBIN CONC (BEAKER) (test 32.0 GM/DL 32.3-36.5 pguy=349) RED CELL DISTRIBUTION WIDTH (BEAKER) (test 15.2 % 11.6-14.4 rjok=935) PLATELET COUNT (BEAKER) (test ecfw=823) 196 K/CU MM 150-450 MEAN PLATELET VOLUME (BEAKER) (test oxxh=509) 10.4 fL 9.4-12.4 NUCLEATED RED BLOOD CELLS (BEAKER) (test 0 /100 WBC 0-0 quwu=828) NEUTROPHILS RELATIVE PERCENT (BEAKER) (test 76 % nyti=141) LYMPHOCYTES RELATIVE PERCENT (BEAKER) (test 12 % cuqa=634) MONOCYTES RELATIVE PERCENT (BEAKER) (test 6 % rjny=052) EOSINOPHILS RELATIVE PERCENT (BEAKER) (test 1 % uurq=839) BASOPHILS RELATIVE PERCENT (BEAKER) (test 0 % cuwf=421) NEUTROPHILS ABSOLUTE COUNT (BEAKER) (test 6.95 K/ L 1.78-5.38 adwc=807) LYMPHOCYTES ABSOLUTE COUNT (BEAKER) (test 1.07 K/ L 1.32-3.57 zrxi=179) MONOCYTES ABSOLUTE COUNT (BEAKER) (test 0.51 K/ L 0.30-0.82 nfqh=061) EOSINOPHILS ABSOLUTE COUNT (BEAKER) (test 0.10 K/ L 0.04-0.54 qpcl=634) BASOPHILS ABSOLUTE COUNT (BEAKER) (test 0.01 K/ L 0.01-0.08 eizz=298) IMMATURE GRANULOCYTES-RELATIVE PERCENT (BEAKER) 6 % 0-1 (test qafl=1595) POCT-GLUCOSE [id number] 11:48:00 Test Item Value Reference Range Comments POC-GLUCOSE METER (BEAKER) 272 mg/dL 70-110 TESTED AT [address] (test hiwr=4971) [place] [id number] POCT-GLUCOSE [id number] 07:34:00 Test Item Value Reference Range Comments POC-GLUCOSE METER (BEAKER) 125 mg/dL 70-110 TESTED AT [address] (test pqkv=3532) [place] [address] [id number] 05:43:00 Test Item Value Reference Range Comments MAGNESIUM (BEAKER) (test ttjk=086) 2.0 mg/dL 1.6-2.6 BASIC METABOLIC [id number] 05:43:00 Test Item Value Reference Range Comments SODIUM (BEAKER) (test 139 meq/L 136-145 clbj=259) POTASSIUM (BEAKER) (test 3.7 meq/L 3.5-5.1 bvrf=255) CHLORIDE (BEAKER) (test 102 meq/L 98-107 fnuv=169) CO2 (BEAKER) (test 28 meq/L 22-29 pvss=661) BLOOD UREA NITROGEN 16 mg/dL 7-21 (BEAKER) (test pemx=374) CREATININE (BEAKER) (test 0.58 mg/dL 0.57-1.25 osio=280) GLUCOSE RANDOM (BEAKER) 130 mg/dL 70-105 (test khlv=895) CALCIUM (BEAKER) (test 8.8 mg/dL 8.4-10.2 xhpc=539) EGFR (BEAKER) (test 145 mL/min/1.73 sq m ESTIMATED GFR IS NOT kqpr=8274) ACCURATE CREATININE CLEARANCE IN PREDICTING GLOMERULAR FILTRATION RATE. ESTIMATED GFR IS NOT APPLICABLE FOR DIALYSIS PATIENTS. URINALYSIS W/ [id number] 01:48:00 Test Item Value Reference Range Comments COLOR (BEAKER) (test snnb=999) Yellow CLARITY (BEAKER) (test znie=512) Clear SPECIFIC GRAVITY UA (BEAKER) (test vujk=142) 1.017 1.001-1.035 PH UA (BEAKER) (test ytmu=643) 7.0 5.0-8.0 PROTEIN UA (BEAKER) (test lzuv=891) Negative Negative GLUCOSE UA (BEAKER) (test sjnl=545) 300 mg/dL Negative KETONES UA (BEAKER) (test wwfc=209) 10 mg/dL Negative BILIRUBIN UA (BEAKER) (test cyso=004) Negative Negative BLOOD UA (BEAKER) (test xvqg=128) Negative Negative NITRITE UA (BEAKER) (test roqi=477) Negative Negative LEUKOCYTE ESTERASE UA (BEAKER) (test wwag=566) Negative Negative UROBILINOGEN UA (BEAKER) (test nyvx=409) 2.0 mg/dL 0.2-1.0 RBC UA (BEAKER) (test plwf=293) < /HPF WBC UA (BEAKER) (test bfhy=527) 1 /HPF SQUAMOUS EPITHELIAL (BEAKER) (test fvmf=803) < /HPF SOURCE(BEAKER) (test oxtg=4894) Urine, Voided HEMOGLOBIN [id number] 22:45:00 Test Item Value Reference Range Comments HEMOGLOBIN A1C (BEAKER) (test txgz=416) 9.2 % 4.3-6.1 TROPONIN [id number] 21:44:00 Test Item Value Reference Range Comments TROPONIN I (BEAKER) (test pduu=195) 0.32 ng/mL 0.00-0.03 Troponin I (TnI) levels must be interpreted [...] failure, acidosis, acute neurological disease, and persistent tachyarrhythmia.POCT-GLUCOSE [id number] 21:42:00 Test Item Value Reference Range Comments POC-GLUCOSE METER (BEAKER) 286 mg/dL 70-[address] [facility] [address] [facility] (test xysw=4542) [facility] [address] TSH/FREE T4 IF [id number] 21:42:00 Test Item Value Reference Range Comments THYROID STIMULATING HORMONE (BEAKER) (test 1.03 uIU/mL 0.35-4.94 jexe=895) PROTHROMBIN TIME/[id number] 21:33:00 Test Item Value Reference Range Comments PROTIME (BEAKER) (test ulee=966) 13.1 seconds 11.7-14.7 INR (BEAKER) (test svci=263) 1.0 <=5.9 RECOMMENDED COUMADIN/WARFARIN INR THERAPY RANGESSTANDARD DOSE: 2.0 - 3.0 Includes: PROPHYLAXIS forvenous thrombosis, systemic embolization; TREATMENT for venous thrombosis and/or pulmonary embolus.HIGH RISK: Target INR is 2.5-3.5 for patients with mechanical heart valves.B-TYPE NATRIURETIC FACTOR (BNP)2017-03 21:28:00 Test Item Value Reference Range Comments B-TYPE NATRIURETIC PEPTIDE (BEAKER) (test 825 pg/mL 0-100 bvym=270) [id number] 21:24:00 Test Item Value Reference Range Comments MAGNESIUM (BEAKER) (test bgdz=960) 2.0 mg/dL 1.6-2.6 BASIC METABOLIC [id number] 21:24:00 Test Item Value Reference Range Comments SODIUM (BEAKER) (test 137 meq/L 136-145 skqk=504) POTASSIUM (BEAKER) (test 3.8 meq/L 3.5-5.1 qomw=570) CHLORIDE (BEAKER) (test 98 meq/L 98-107 fnzf=614) CO2 (BEAKER) (test 30 meq/L 22-29 kipq=436) BLOOD UREA NITROGEN 18 mg/dL 7-21 (BEAKER) (test ixfv=224) CREATININE (BEAKER) (test 0.74 mg/dL 0.57-1.25 iier=953) GLUCOSE RANDOM (BEAKER) 267 mg/dL 70-105 (test jwcw=186) CALCIUM (BEAKER) (test 8.9 mg/dL 8.4-10.2 ddgy=087) EGFR (BEAKER) (test 110 mL/min/1.73 sq m ESTIMATED GFR IS NOT iija=6157) ACCURATE CREATININE CLEARANCE IN PREDICTING GLOMERULAR FILTRATION RATE. ESTIMATED GFR IS NOT APPLICABLE FOR DIALYSIS PATIENTS. HEPATIC FUNCTION [id number] 21:24:00 Test Item Value Reference Range Comments TOTAL PROTEIN (BEAKER) (test qyej=446) 5.9 gm/dL 6.0-8.3 ALBUMIN (BEAKER) (test vame=3696) 3.2 g/dL 3.5-5.0 BILIRUBIN TOTAL (BEAKER) (test oxji=906) 1.1 mg/dL 0.2-1.2 BILIRUBIN DIRECT (BEAKER) (test ecou=594) 0.3 mg/dL 0.1-0.5 ALKALINE PHOSPHATASE (BEAKER) (test zjpw=040) 105 U/L 40-150 AST (SGOT) (BEAKER) (test ncgc=176) 13 U/L 5-34 ALT (SGPT) (BEAKER) (test boqt=593) 37 U/L 6-55 CBC W/PLT COUNT & AUTO [id number] 21:24:00 Test Item Value Reference Range Comments WHITE BLOOD CELL COUNT (BEAKER) (test wdca=201) 8.9 K/ L 3.5-10.5 RED BLOOD CELL COUNT (BEAKER) (test sxso=118) 4.91 M/ L 4.63-6.08 HEMOGLOBIN (BEAKER) (test gctc=338) 14.4 GM/DL 13.7-17.5 HEMATOCRIT (BEAKER) (test rhwg=315) 44.4 % 40.1-51.0 MEAN CORPUSCULAR VOLUME (BEAKER) (test wjqb=908) 90.4 fL 79.0-92.2 MEAN CORPUSCULAR HEMOGLOBIN (BEAKER) (test 29.3 pg 25.7-32.2 plna=213) MEAN CORPUSCULAR HEMOGLOBIN CONC (BEAKER) (test 32.4 GM/DL 32.3-36.5 wkme=521) RED CELL DISTRIBUTION WIDTH (BEAKER) (test 15.0 % 11.6-14.4 rkty=203) PLATELET COUNT (BEAKER) (test xsus=301) 249 K/CU MM 150-450 MEAN PLATELET VOLUME (BEAKER) (test rtic=531) 10.0 fL 9.4-12.4 NUCLEATED RED BLOOD CELLS (BEAKER) (test 0 /100 WBC 0-0 zltz=912) NEUTROPHILS RELATIVE PERCENT (BEAKER) (test 82 % vsqh=281) LYMPHOCYTES RELATIVE PERCENT (BEAKER) (test 9 % ngot=231) MONOCYTES RELATIVE PERCENT (BEAKER) (test 5 % alvs=273) EOSINOPHILS RELATIVE PERCENT (BEAKER) (test 0 % lnvk=197) BASOPHILS RELATIVE PERCENT (BEAKER) (test 0 % rfdu=474) NEUTROPHILS ABSOLUTE COUNT (BEAKER) (test 7.24 K/ L 1.78-5.38 twam=326) LYMPHOCYTES ABSOLUTE COUNT (BEAKER) (test 0.80 K/ L 1.32-3.57 yzwx=432) MONOCYTES ABSOLUTE COUNT (BEAKER) (test 0.40 K/ L 0.30-0.82 sdbc=988) EOSINOPHILS ABSOLUTE COUNT (BEAKER) (test 0.01 K/ L 0.04-0.54 qojx=250) BASOPHILS ABSOLUTE COUNT (BEAKER) (test 0.01 K/ L 0.01-0.08 tkxh=094) IMMATURE GRANULOCYTES-RELATIVE PERCENT (BEAKER) 5 % 0-1 (test xbqa=8074) LACTIC ACID, VENOUS, WHOLE [id number] 21:18:00 Test Item Value Reference Range Comments LACTATE BLOOD VENOUS (2) 1.2 mmol/L 0.5-2.2 Specimen moderately hemolyzed (BEAKER) (test aerx=6606) Effective 08/18/2015: Units/Reference Range ChangeNew: 0.5-2.2 mmol/L Previous: 5 -20 mg/dLRAD, CHEST, 1 VIEW, NON [id number] 21:06:00Reason for exam:-> shortness of breathShould this be performed at the bedside?->YesFINAL REPORT History: Shortness of breath. Comparison: None. Findings : A single view of the chest is submitted. The cardiac silhouette is prominent in size but magnified by low lung volumes and portable technique. There is central pulmonary vascular congestion. Bilateral interstitial and patchy mid and lower lung airspace opacities may reflect a combination of atelectasis andedema but pneumonitis should be excluded clinically. A small right pleural effusion is suspected. There is no pneumothorax or acute bony abnormality. Signed: Melissa Hook MDReport Verified Date/Time: 04/15/2017 21:06:26 Reading Location: [address] Reading Room
[2018-01-31] MEDS ORDERED: NA CHLORIDE 0.9% 1,000 ML ONE (10:38)
[2018-01-31 10:42] LABS: Absolute Lymphocytes (CBC) 0.4 K/uL (0.7-4.9); Absolute Monocytes 0.3 K/uL (0.1-1.3); Absolute Neutrophil 10.6 K/uL (1.8-8.0); Basophils % 0.1 % (0-1.3); Hematocrit 45.3 % (39.6-49.0); Lymphocytes % 3.5 % (15.3-44.8); MCH 32.2 pg (27.0-35.0); MCV 94.4 fL (80-100); MPV 7.6 fL (7.6-11.3); Monocytes % 2.4 % (3.3-12.3)
[2018-01-31 10:44] LABS: Protime INR 0.89
--- NOTE | 2018-01-31 10:58 | RAD REPORT ---
EXAM DESCRIPTION: CT - Head Brain Wo Cont - 01/31/2018 10:39 am CLINICAL HISTORY: Hypertension, facial droop COMPARISON: None. TECHNIQUE: Axial 5 mm thick images of the head were obtained without IV contrast. All CT scans are performed using dose optimization technique as appropriate and may include automated exposure control or mA/KV adjustment according to patient size. FINDINGS: No intracranial hemorrhage, mass, edema or shift of mid-line structures. No acute infarcti on changes seen. No cortical edema or sulcal effacement. No significant atrophy or chronic ischemic c hange. Ventricles are normal. Mastoid air cells and visualized portions of the paranasal sinuses are clear. No acute bony findings. IMPRESSION: Negative non-contrast CT head examination for acute finding.
[2018-01-31 11:07] LABS: BUN Blood Urea Nitrogen 13 mg/dL (7-18); Bicarbonate 24 mmol/L (21-32); Glucose Level 287 mg/dL (74-106); Potassium 4.2 mmol/L (3.5-5.1); Sodium Level 140 mmol/L (136-145); Troponin (Emerg Dept Use Only) < 0.02 ng/mL (0.0-0.045)
[2018-01-31 11:38] LABS: Blood Morphology Comment NOT SEEN (NOT SEEN); Platelet Estimate ADEQ
--- NOTE | 2018-01-31 13:10 | RAD REPORT ---
EXAM DESCRIPTION: MRI - Brain Wo Cont - 01/31/2018 1:01 pm CLINICAL HISTORY: Facial drooping, stroke-like symptoms COMPARISON: CT head same date TECHNIQUE: Sagittal T1-weighted images were obtained along with axial PD, heavily T2-weighted and T2 -FLAIR images. Axial DWI and ADC mapping sequences were also obtained along with coronal heavily T2-w eighted images. FINDINGS: No intracranial hemorrhage, mass or acute infarction. There is no edema or shift of midlin e structures. No extra-axial fluid collections. Gerard-matter/white matter junction is preserved. Signa l voids are seen as a normal finding in the major intracranial vessels. No measurable atrophy or project engineering manager juanis ischemic change. Ventricles are normal. No globe or orbital content abnormality seen. No sella or supra sella abnormality. No tonsillar ectopia. Mastoid air cells and paranasal sinuses are clear. Exam has limitation due to motion. Multiple sequences had to be repeated. IMPRESSION: No acute infarction changes seen. No hemorrhage, mass, edema or other acute intracranial finding.
--- NOTE | 2018-01-31 13:17 | EDPHYS ---
Physician Documentation [facility] Name: Mahamed Lanza Age: 57 yrs Sex: Male : 1960 Arrival Date: 01/31/2018 Time: 10:24 Bed 4 Private MD: ED Physician Erich Cartagena HPI: 01/31 10:40 This 57 yrs old Male presents to ER via EMS with complaints of eye redness. rn 10:40 The patient is experiencing redness, The patient sustained None. to the right eye, rn caused by an unknown mechanism. Onset: The symptoms/episode began/occurred this morning. Duration: the symptoms are continuous. Aggravated by nothing. Alleviated by nothing. Associated signs and symptoms: Pertinent positives: None. Pertinent negatives: fever, headache. Severity of symptoms: At their worst the symptoms were mild in the emergency department the symptoms are unchanged. The patient has not experienced similar symptoms in the past. Reports woke up today with red eye, otherwise asymptomatic, went to work, boss saw his eye, had BP checked and was high, called for ambulance, patient denies trauma, no vision changes, EMS reports "very subtle facial droop", patient denies syncope/speech problem/focal weakness or numbness.. Historical: - Allergies: 10:28 NKA; iw - PMHx: 10:28 Diabetes - NIDDM; Hypertension; Asthma; iw - PSHx: 10:28 None; iw - Immunization history:: Adult Immunizations not immunized. - Social history:: Smoking status: Patient/guardian denies using tobacco. - Ebola Screening: : Patient negative for fever greater than or equal to 101.5 degrees Fahrenheit, and additional compatible Ebola Virus Disease symptoms Patient denies exposure to infectious person Patient denies travel to an Ebola-affected area in the 21 days before illness onset No symptoms or risks identified at this time. - Family history:: not pertinent. - Hospitalizations: : No recent hospitalization is reported. ROS: 10:40 Constitutional: Negative for fever, chills, and weight loss, Eyes: + redness of right rn eye Neck: Negative for injury, pain, and swelling, Cardiovascular: Negative for chest pain, palpitations, and edema, Respiratory: Negative for shortness of breath, cough, wheezing, and pleuritic chest pain, Abdomen/GI: Negative for abdominal pain, nausea, vomiting, diarrhea, and constipation, MS/Extremity: Negative for injury and deformity, Skin: Negative for injury, rash, and discoloration, Neuro: Negative for headache, weakness, numbness, tingling, and seizure. Exam: 10:40 Visual Acuity: Visual acuity is within normal limits. rn 10:40 Constitutional: This is a well developed, well nourished patient who is awake, alert, and in no acute distress. Appears anxious Head/Face: Normocephalic, atraumatic. Eyes: + right subconjunctival hemorrhage, EOMI Neck: Trachea midline, no thyromegaly or masses palpated, and no cervical lymphadenopathy. Supple, full range of motion without nuchal rigidity, or vertebral point tenderness. No Meningismus. Cardiovascular: Regular rate and rhythm with a normal S1 and S2. No gallops, murmurs, or rubs. Normal PMI, no JVD. No pulse deficits. Respiratory: Lungs have equal breath sounds bilaterally, clear to auscultation and percussion. No rales, rhonchi or wheezes noted. No increased work of breathing, no retractions or nasal flaring. Abdomen/GI: Soft, non-tender, with normal bowel sounds. No distension or tympany. No guarding or rebound. No evidence of tenderness throughout. MS/ Extremity: Pulses equal, no cyanosis. Neurovascular intact. Full, normal range of motion. Equal circumference. Neuro: Awake and alert, GCS 15, oriented to person, place, time, and situation. Cranial nerves II-XII grossly intact. Motor strength 5/5 in all extremities. Sensory grossly intact. Cerebellar exam normal. No facial droop noted. Vital Signs: 10:24 BP 155 / 74; Pulse 114; Resp 18 S; Pulse Ox 99% ; Weight 80.29 kg; Height 5 ft. 8 in. iw (172.72 cm); Pain 0/10; 10:29 Temp 98.6(TE); ss 10:30 Pulse 101; iw 10:42 Pulse 97; iw 11:11 BP 151 / 84; Pulse 91; Resp 16; Pulse Ox 97% on R/A; Pain 0/10; iw 10:24 Body Mass Index 26.91 (80.29 kg, 172.72 cm) iw MDM: 10:24 Patient medically screened. rn 13:13 Differential diagnosis: TIA, hypertension, diabetes, subconjunctival hemorrhage. rn 13:14 Data reviewed: vital signs, nurses notes, lab test result(s), radiologic studies, and rn as a result, I will discharge patient. Counseling: I had a detailed discussion with the patient and/or guardian regarding: the historical points, exam findings, and any diagnostic results supporting the discharge/admit diagnosis, lab results, radiology results, the need for outpatient follow up, to return to the emergency department if symptoms worsen or persist or if there are any questions or concerns that arise at home. Special discussion: I discussed with the patient/guardian in detail that at this point there is no indication for admission to the hospital. It is understood, however, that if the symptoms persist or worsen the patient needs to return immediately for re-evaluation. Based on the history and exam findings, there is no indication for further emergent testing or inpatient evaluation. I discussed with the patient/guardian the need to see the primary care provider for further evaluation of the symptoms. ED course: Labs unremarkable except for hyperglycemia, no AG, CT head and MRI negative, + subconjunctival hemorrhage, will dc home with continuation of BP meds and pcp f/u. . 01/31 10:26 Order name: CBC with Diff; Complete Time: 11: rn 01/31 10:26 Order name: Basic Metabolic Panel; Complete Time: 11: rn 01/31 10:26 Order name: Protime (+inr); Complete Time: rn 01/31 10:26 Order name: Ptt, Activated; Complete Time: 10:59 rn 01/31 10:26 Order name: Troponin (emerg Dept Use Only); Complete Time: 11:51 rn 01/31 10:50 Order name: Manual Differential; Complete Time: 11:51 EDMS 01/31 10:26 Order name: IV Start; Complete Time: 10:42 rn 01/31 10:26 Order name: CT Head Brain wo Cont; Complete Time: 10:59 rn 01/31 10:26 Order name: EKG; Complete Time: 10:27 rn 01/31 10:26 Order name: EKG - Nurse/Tech; Complete Time: 10:43 rn 01/31 10:26 Order name: Accucheck; Complete Time: 10:43 rn 01/31 11:11 Order name: Brain Wo Cont; Complete Time: 13:13 EDMS Administered Medications: 10:42 Drug: NS 0.9% 1000 ml Route: IV; Rate: 1000 ml; Site: left antecubital; Point of Care Testing: Blood Glucose: 10:29 Blood Glucose: 253 mg/dL; Ranges: Critical Glucose Levels:Adult <50 mg/dl or >400 mg/dl <40 mg/dl or >180 mg/dl Disposition: 01/31/18 13:16 Discharged to Home. Impression: Subconjunctival Hemorrhage, Hypertension. - Condition is Stable. - Discharge Instructions: Hypertension, Subconjunctival Hemorrhage. - Medication Reconciliation Form, Thank You Letter, Antibiotic Education, Prescription Opioid Use form. - Follow up: Private Physician; When: As needed; Reason: Recheck today's complaints, Re-evaluation by your physician. - Problem is new. - Symptoms have improved. Signatures: Dispatcher [employer] EDMS David Barnes RN RN sg Oly Pack RN RN iw Erich Cartagena MD MD rn er: (The following items were deleted from the chart) 13:34 13:16 01/31/2018 13:16 Discharged to Home. Impression: Subconjunctival Hemorrhage; iw Hypertension. Condition is Stable. Forms are Medication Reconciliation Form, Thank You Letter, Antibiotic Education, Prescription Opioid Use. Follow up: Private Physician; When: As needed; Reason: Recheck today's complaints, Re-evaluation by your physician. Problem is new. Symptoms have improved. rn
--- NOTE | 2018-01-31 13:17 | ER ---
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 Pt has no complaints at this time. EMS reported R sided facial droop, but on arrival to ED, there was no drooping noted. Transition of care: patient was not received from another setting of care. Onset of symptoms was January 31, 2018. Risk Assessment: Do you want to hurt yourself or someone else? Patient reports no desire to harm self or others. Initial Sepsis Screen: Does the patient meet any 2 criteria? HR > 90 bpm. Does the patient have a suspected source of infection? No. Patient's initial sepsis screen is negative. Note PT reports he woke up this morning with the redness to his sclera. Care prior to arrival: None. 10:29 Method Of Arrival: EMS: [facility] ss 10:29 Acuity: LORA 3 ss Historical: - Allergies: 10:28 NKA; iw - PMHx: 10:28 Diabetes - NIDDM; Hypertension; Asthma; iw - PSHx: 10:28 None; iw - Immunization history:: Adult Immunizations not immunized. - Social history:: Smoking status: Patient/guardian denies using tobacco. - Ebola Screening: : Patient negative for fever greater than or equal to 101.5 degrees Fahrenheit, and additional compatible Ebola Virus Disease symptoms Patient denies exposure to infectious person Patient denies travel to an Ebola-affected area in the 21 days before illness onset No symptoms or risks identified at this time. - Family history:: not pertinent. - Hospitalizations: : No recent hospitalization is reported. Screenin:41 Abuse screen: Denies threats or abuse. Denies injuries from another. Nutritional iw screening: No deficits noted. Tuberculosis screening: No symptoms or risk factors identified. Fall Risk IV access (20 points). Assessment: 10:32 General: Appears in no apparent distress. Behavior is calm, cooperative. Pain: Denies iw pain. Neuro: Level of Consciousness is awake, alert, obeys commands, Oriented to person, place, time, situation. Cardiovascular: Capillary refill < 3 seconds in bilateral fingers Patient's skin is warm and dry. Respiratory: Respiratory effort is even, unlabored, Respiratory pattern is regular, symmetrical. GI: Abdomen is non-distended. EENT: Eyes Sclera/Cornea are reddened in outer aspect of conjuctiva of right eye, iris of right eye and inner aspect of conjuctiva of right eye. Derm: Skin is intact, is healthy with good turgor. Musculoskeletal: Range of motion: intact in all extremities. 11:31 Reassessment: Patient appears in no apparent distress at this time. Patient and/or iw family updated on plan of care and expected duration. Pain level reassessed. Patient is alert, oriented x 3, equal unlabored respirations, skin warm/dry/pink. Patient denies pain at this time. 12:30 Reassessment: Patient appears in no apparent distress at this time. Patient and/or iw family updated on plan of care and expected duration. Pain level reassessed. Patient is alert, oriented x 3, equal unlabored respirations, skin warm/dry/pink. pt transported to [facility], with tech. Vital Signs: 10:24 BP 155 / 74; Pulse 114; Resp 18 S; Pulse Ox 99% ; Weight 80.29 kg; Height 5 ft. 8 in. iw (172.72 cm); Pain 0/10; 10:29 Temp 98.6(TE); ss 10:30 Pulse 101; iw 10:42 Pulse 97; iw 11:11 BP 151 / 84; Pulse 91; Resp 16; Pulse Ox 97% on R/A; Pain 0/10; iw 10:24 Body Mass Index 26.91 (80.29 kg, 172.72 cm) ED Course: 10:24 Patient arrived in ED. iw 10:24 Erich Cartagena MD is Attending Physician. rn 10:29 Arm band placed on right wrist. ss 10:35 Triage completed. ss 10:35 Patient has correct armband on for positive identification. iw 10:35 Inserted saline lock: 20 gauge in left antecubital area, using aseptic technique. ss ,using aseptic technique. insertion by VINICIO Kearney tech Blood collected. 10:36 CT completed. Patient tolerated procedure well. Patient moved to CT via wheelchair. sj Patient moved back from CT. 10:37 CT Head Brain wo Cont In Process Unspecified. EDMS 11:11 Oly Pack, RN is Primary Nurse. iw 11:12 EKG done, by engineering tech. reviewed by Erich Cartagena MD. dt2 12:45 Brain Wo Cont In Process Unspecified. EDMS 12:45 Patient moved to MRI via wheelchair. 13:18 MRI completed. Patient tolerated well. Patient moved back from MRI. em2 13:32 No provider procedures requiring assistance completed. IV discontinued, intact, iw bleeding controlled, No redness/swelling at site. Pressure dressing applied. Administered Medications: 10:42 Drug: NS 0.9% 1000 ml Route: IV; Rate: 1000 ml; Site: left antecubital; Point of Care Testing: Blood Glucose: 10:29 Blood Glucose: 253 mg/dL; Ranges: Outcome: 13:16 Discharge ordered by MD. rn 13:32 Discharged to home ambulatory. iw 13:32 Condition: good 13:32 Discharge instructions given to patient, Instructed on discharge instructions, follow up and referral plans. Demonstrated understanding of instructions, follow-up care. 13:34 Patient left the ED. iw Signatures: Dispatcher [employer] EDMS David Barnes, RN RN Bee Sarabia Susan Oly Pack, RN RN iw Erich Cartagena MD MD rn Smirch, Shelby, RN RN ss Montes, Enrique em2 [place] dt2
--- NOTE | 2018-02-01 06:52 | EKG ---
Test Date: 2018-01-31 Test Time: 11:05:35 Outpatient Dietitian: EVELYN MEASUREMENT RESULTS: Intervals: Rate: 95 MN: 128 QRSD: 78 QT: 376 QTc: 472 [place]: P: 20 MN: 128 QRS: -5 T: 15 INTERPRETIVE STATEMENTS: Normal sinus rhythm Nonspecific T wave abnormality Prolonged QT Abnormal ECG Compared to ECG 04/13/2017 07:15:49 T-wave abnormality now present Prolonged QT interval now present Sinus tachycardia no longer present Short MN interval no longer present ST (T wave) deviation no longer present Electronically Signed On 02-01-18 06:49:27 CDT by Henok Farias
== END 2018-01-31 13:34 | disposition home or self-care (01) ==
LOC: ER 10:22
DX: H11.31 Conjunctival hemorrhage, right eye (principal); I10 Essential (primary) hypertension
CPT/HCPCS: 36415; 70450; 70551; 80048; 82962; 84484; 85025; 85610; 85730; 93005; 99284; J7030

== ENCOUNTER 2018-12-22 16:39 | Inpatient (IN) | payer SELFPAY ==
--- OUTSIDE RECORDS SUMMARY | 2018-12-22 16:41 | XMS REPORT | Clinical Summary ---
:1960 Author Organization [facility] Address [address] [place] [address] Care Team Providers Name Role Phone Unavailable Primary Care Provider Unavailable Allergies No Known Allergies Medications Medication Sig Dispensed Refills Start Date End Date Status metFORMIN Take by mouth 2 0 Active (GLUCOPHAGE) 500 MG (two) times daily tabletIndications: with breakfast type 2 diabetes and dinner Pt mellitus does not know what dose . aspirin 81 MG Take 1 tablet (81 90 tablet 0 04/22/2017 04/22/2018 chewable tablet mg total) by mouth daily. carvedilol (COREG) Take 1 tablet 180 tablet 1 04/21/2017 04/21/2018 3.125 MG tablet (3.125 mg total) by mouth 2 (two) times daily. digoxin (LANOXIN) Take 1 tablet 90 tablet 1 04/22/2017 04/22/2018 0.125 MG tablet (125 mcg total) by mouth daily. furosemide (LASIX) Take 1 tablet (20 90 tablet 1 04/22/2017 04/22/2018 20 MG tablet mg total) by mouth daily. Active Problems Problem Noted Date Congestive heart failure (CHF) 04/15/2017 Social History Tobacco Use Types Packs/Day Years Used Date Never Smoker Smokeless Tobacco: Never Used Sex Assigned at Date Recorded Not on file Job Start Date Occupation Industry Not on file Not on file Not on file Travel History Travel Start Travel End No recent travel history available. Last Filed Vital Signs Not on file Plan of Treatment Not on file Implants Implanted Type Area Change Coordinator Device Shelf Model / Identifier Expiration Serial / Date Lot Closure Sys Perclose Progl 6fr [id number] - [id number] Cardiovascular N/A: PEREZ [id number] 05/15/2018 [id number] / Implanted: Qty: 1 on 04/17/2017 by Mohsen Mackay MD Groin LAB:VASC DEV / Procedures Procedure Name Priority Date/Time Associated Diagnosis Comments RHYTHM STRIP - SCAN 07/31/2018 12:50 PM CDT after 12/21/2017 Results RHYTHM STRIP - SCAN (07/31/2018 12:50 PM CDT) Narrative Performed At after 12/21/2017 Advance Directives For more information, please contact:[address] [phone] Code Status Date Activated Date Inactivated Comments Full Code 04/15/2017 6:51 PM 04/21/2017 10:14 PM This code status was determined by: Patient
--- OUTSIDE RECORDS SUMMARY | 2018-12-22 16:42 | XMS REPORT ---
:1960 [facility] [address] [place] [address] Care Team Providers Name Role Phone ANASTASIIA [...] (BEAKER) (test 142 mg/dL 70-110 TESTED AT [address] sypm=0031) [facility] [address] POCT-GLUCOSE [id number] 15:28:00 Test Item Value Reference Range Comments POC-GLUCOSE METER (BEAKER) 149 mg/dL 70-110 TESTED AT [address] (test cvuh=1673) [facility] [address] [id number] 06:40:00 Test Item Value Reference Range Comments MAGNESIUM (BEAKER) (test vvdt=017) 1.9 mg/dL 1.6-2.6 BASIC METABOLIC [id number] 06:40:00 Test Item Value Reference Range Comments SODIUM (BEAKER) (test 135 meq/L 136-145 nghl=547) POTASSIUM (BEAKER) (test 3.8 meq/L 3.5-5.1 etby=706) CHLORIDE (BEAKER) (test 106 meq/L 98-107 dmho=918) CO2 (BEAKER) (test 22 meq/L 22-29 zfpc=941) BLOOD UREA NITROGEN 7 mg/dL 7-21 (BEAKER) (test ujkg=928) CREATININE (BEAKER) (test 0.49 mg/dL 0.57-1.25 nsif=967) GLUCOSE RANDOM (BEAKER) 101 mg/dL 70-105 (test piah=398) CALCIUM (BEAKER) (test 8.4 mg/dL 8.4-10.2 uujx=763) EGFR (BEAKER) (test 177 mL/min/1.73 sq m ESTIMATED GFR IS NOT vcao=8843) ACCURATE CREATININE CLEARANCE IN PREDICTING GLOMERULAR FILTRATION RATE. ESTIMATED GFR IS NOT APPLICABLE FOR DIALYSIS PATIENTS. CBC W/PLT COUNT & AUTO [id number] 05:35:00 Test Item Value Reference Range Comments WHITE BLOOD CELL COUNT (BEAKER) (test mvhm=244) 7.8 K/ L 3.5-10.5 RED BLOOD CELL COUNT (BEAKER) (test gmmj=360) 4.21 M/ L 4.63-6.08 HEMOGLOBIN (BEAKER) (test qqir=549) 12.5 GM/DL 13.7-17.5 HEMATOCRIT (BEAKER) (test heov=497) 37.7 % 40.1-51.0 MEAN CORPUSCULAR VOLUME (BEAKER) (test rtgu=221) 89.5 fL 79.0-92.2 MEAN CORPUSCULAR HEMOGLOBIN (BEAKER) (test 29.7 pg 25.7-32.2 obni=967) MEAN CORPUSCULAR HEMOGLOBIN CONC (BEAKER) (test 33.2 GM/DL 32.3-36.5 cvpr=000) RED CELL DISTRIBUTION WIDTH (BEAKER) (test 14.8 % 11.6-14.4 fwxg=527) PLATELET COUNT (BEAKER) (test zghq=355) 210 K/CU MM 150-450 MEAN PLATELET VOLUME (BEAKER) (test vefp=182) 10.3 fL 9.4-12.4 NUCLEATED RED BLOOD CELLS (BEAKER) (test 0 /100 WBC 0-0 lccf=549) NEUTROPHILS RELATIVE PERCENT (BEAKER) (test 69 % wnvk=460) LYMPHOCYTES RELATIVE PERCENT (BEAKER) (test 16 % vcsq=731) MONOCYTES RELATIVE PERCENT (BEAKER) (test 9 % kamr=802) EOSINOPHILS RELATIVE PERCENT (BEAKER) (test 1 % qmtn=969) BASOPHILS RELATIVE PERCENT (BEAKER) (test 1 % thfq=667) NEUTROPHILS ABSOLUTE COUNT (BEAKER) (test 5.38 K/ L 1.78-5.38 cehm=412) LYMPHOCYTES ABSOLUTE COUNT (BEAKER) (test 1.25 K/ L 1.32-3.57 kiyp=355) MONOCYTES ABSOLUTE COUNT (BEAKER) (test 0.66 K/ L 0.30-0.82 yxzu=439) EOSINOPHILS ABSOLUTE COUNT (BEAKER) (test 0.06 K/ L 0.04-0.54 qgiz=986) BASOPHILS ABSOLUTE COUNT (BEAKER) (test 0.09 K/ L 0.01-0.08 kwer=051) IMMATURE GRANULOCYTES-RELATIVE PERCENT (BEAKER) 4 % 0-1 (test xppw=4693) BLOOD [id number] 05:01:00 Test Item Value Reference Range Comments CULTURE (BEAKER) (test eoji=2569) No growth in 5 days BLOOD [id number] 05:01:00 Test Item Value Reference Range Comments CULTURE (BEAKER) (test sqgg=0494) No growth in 5 days POCT-GLUCOSE [id number] 20:57:00 Test Item Value Reference Range Comments POC-GLUCOSE METER (BEAKER) 262 mg/dL 70-110 TESTED AT [address] (test gwsl=3800) [place] [address] POCT-GLUCOSE [id number] 18:50:00 Test Item Value Reference Range Comments POC-GLUCOSE METER (BEAKER) 102 mg/dL 70-110 TESTED AT [address] (test mkhf=9073) [place] [address] POCT-GLUCOSE [id number] 12:47:00 Test Item Value Reference Range Comments POC-GLUCOSE METER (BEAKER) 190 mg/dL 70-110 TESTED AT [address] (test flse=6797) [place] [address] [id number] 05:24:00 Test Item Value Reference Range Comments MAGNESIUM (BEAKER) (test eymd=923) 2.1 mg/dL 1.6-2.6 BASIC METABOLIC [id number] 05:24:00 Test Item Value Reference Range Comments SODIUM (BEAKER) (test 134 meq/L 136-145 borh=809) POTASSIUM (BEAKER) (test 3.7 meq/L 3.5-5.1 mdkv=736) CHLORIDE (BEAKER) (test 105 meq/L 98-107 eajy=101) CO2 (BEAKER) (test 24 meq/L 22-29 mfyk=094) BLOOD UREA NITROGEN 7 mg/dL 7-21 (BEAKER) (test vbnr=758) CREATININE (BEAKER) (test 0.52 mg/dL 0.57-1.25 tupc=920) GLUCOSE RANDOM (BEAKER) 106 mg/dL 70-105 (test soob=664) CALCIUM (BEAKER) (test 8.0 mg/dL 8.4-10.2 hwgc=521) EGFR (BEAKER) (test 165 mL/min/1.73 sq m ESTIMATED GFR IS NOT dvzj=3211) ACCURATE CREATININE CLEARANCE IN PREDICTING GLOMERULAR FILTRATION RATE. ESTIMATED GFR IS NOT APPLICABLE FOR DIALYSIS PATIENTS. CBC W/PLT COUNT & AUTO [id number] 04:52:00 Test Item Value Reference Range Comments WHITE BLOOD CELL COUNT (BEAKER) (test ssyr=131) 7.7 K/ L 3.5-10.5 RED BLOOD CELL COUNT (BEAKER) (test uejn=552) 4.14 M/ L 4.63-6.08 HEMOGLOBIN (BEAKER) (test wkgp=906) 12.4 GM/DL 13.7-17.5 HEMATOCRIT (BEAKER) (test spga=202) 37.4 % 40.1-51.0 MEAN CORPUSCULAR VOLUME (BEAKER) (test ryai=561) 90.3 fL 79.0-92.2 MEAN CORPUSCULAR HEMOGLOBIN (BEAKER) (test 30.0 pg 25.7-32.2 yozb=867) MEAN CORPUSCULAR HEMOGLOBIN CONC (BEAKER) (test 33.2 GM/DL 32.3-36.5 ufvq=536) RED CELL DISTRIBUTION WIDTH (BEAKER) (test 14.9 % 11.6-14.4 sgnd=655) PLATELET COUNT (BEAKER) (test dnzq=625) 202 K/CU MM 150-450 MEAN PLATELET VOLUME (BEAKER) (test uwzf=944) 9.9 fL 9.4-12.4 NUCLEATED RED BLOOD CELLS (BEAKER) (test 0 /100 WBC 0-0 spnr=741) NEUTROPHILS RELATIVE PERCENT (BEAKER) (test 72 % lsxs=728) LYMPHOCYTES RELATIVE PERCENT (BEAKER) (test 13 % hkeu=638) MONOCYTES RELATIVE PERCENT (BEAKER) (test 7 % wwbx=018) EOSINOPHILS RELATIVE PERCENT (BEAKER) (test 1 % yiid=417) BASOPHILS RELATIVE PERCENT (BEAKER) (test 1 % lyqv=739) NEUTROPHILS ABSOLUTE COUNT (BEAKER) (test 5.58 K/ L 1.78-5.38 frtu=276) LYMPHOCYTES ABSOLUTE COUNT (BEAKER) (test 1.03 K/ L 1.32-3.57 gwer=791) MONOCYTES ABSOLUTE COUNT (BEAKER) (test 0.54 K/ L 0.30-0.82 gwzb=194) EOSINOPHILS ABSOLUTE COUNT (BEAKER) (test 0.11 K/ L 0.04-0.54 sotk=465) BASOPHILS ABSOLUTE COUNT (BEAKER) (test 0.06 K/ L 0.01-0.08 twso=795) IMMATURE GRANULOCYTES-RELATIVE PERCENT (BEAKER) 5 % 0-1 (test rsrv=1763) POCT-GLUCOSE [id number] 22:11:00 Test Item Value Reference Range Comments POC-GLUCOSE METER (BEAKER) 131 mg/dL 70-110 TESTED AT [address] (test wvrg=3255) [place] [address] POCT-GLUCOSE [id number] 17:52:00 Test Item Value Reference Range Comments POC-GLUCOSE METER (BEAKER) 113 mg/dL 70-110 TESTED AT [address] (test jjhh=7580) [facility] [address] MR, CARDIAC, [id number] 16:35:00Reason for exam:->viabilityFINAL REPORT Cardiac MRI dated 19 April 2016 INDICATION: This is a 56 year-old male with known ischemic cardiomyopathy presents for assessment. Recent angiography demonstrate no coronary artery disease. This study is performed in order to quantitate left ventricular function,and to determine myocardial viability and damage. TECHNIQUE: PiazzaVA MRI scanner. Morphologic and dynamic cine imaging [...] global hypokinesis/akinesis. Quantitative values are as follows: XIP=042 cc; CSV=248 cc; stroke volume=63 cc; and ejection fraction=21% . Calculated absolute cardiac output=6.2 liters/min. Absolute left ventricular qmty=284 grams. Index PWDRR=038 cc/sq m confirming left ventricular enlargement. No evidence of hypertrophic cardiomyopathy or left ventricular noncompaction noted. The right ventricle is normal in size with mild systolic dysfunction. Quantitative values are as follows: ZMU=224 cc; ESV=97 cc; and ejection fraction=34%. Cine [...] cardiomyopathy. Furthermore, this is consistent with raised [place] myocardial T1 in the experimental T1 mapping [...] MDReport Verified Date/Time: 04/19/2017 16:35:20 Reading Location: [place] [address] Cardiology MRI POCT-GLUCOSE [id number] 13:41:00 Test Item Value Reference Range Comments POC-GLUCOSE METER (BEAKER) 131 mg/dL 70-110 TESTED AT [facility] [address] [facility] (test rxse=4307) [facility] [address] POCT-GLUCOSE [id number] 08:39:00 Test Item Value Reference Range Comments POC-GLUCOSE METER (BEAKER) 127 mg/dL 70-110 TESTED AT [facility] [address] [facility] (test eufw=7207) [facility] [address] [id number] 06:51:00 Test Item Value Reference Range Comments MAGNESIUM (BEAKER) (test xjst=208) 1.8 mg/dL 1.6-2.6 BASIC METABOLIC [id number] 06:51:00 Test Item Value Reference Range Comments SODIUM (BEAKER) (test 136 meq/L 136-145 fnuz=825) POTASSIUM (BEAKER) (test 4.2 meq/L 3.5-5.1 ljqk=597) CHLORIDE (BEAKER) (test 107 meq/L 98-107 lnsn=146) CO2 (BEAKER) (test 24 meq/L 22-29 ovxr=458) BLOOD UREA NITROGEN 6 mg/dL 7-21 (BEAKER) (test keds=371) CREATININE (BEAKER) (test 0.53 mg/dL 0.57-1.25 qusv=991) GLUCOSE RANDOM (BEAKER) 111 mg/dL 70-105 (test miho=315) CALCIUM (BEAKER) (test 8.1 mg/dL 8.4-10.2 cszs=129) EGFR (BEAKER) (test 161 mL/min/1.73 sq m ESTIMATED GFR IS NOT qxmm=8502) ACCURATE CREATININE CLEARANCE IN PREDICTING GLOMERULAR FILTRATION RATE. ESTIMATED GFR IS NOT APPLICABLE FOR DIALYSIS PATIENTS. CBC W/PLT COUNT & AUTO [id number] 05:57:00 Test Item Value Reference Range Comments WHITE BLOOD CELL COUNT (BEAKER) (test xlai=875) 8.2 K/ L 3.5-10.5 RED BLOOD CELL COUNT (BEAKER) (test yfft=033) 4.27 M/ L 4.63-6.08 HEMOGLOBIN (BEAKER) (test teei=283) 12.7 GM/DL 13.7-17.5 HEMATOCRIT (BEAKER) (test aemv=342) 38.7 % 40.1-51.0 MEAN CORPUSCULAR VOLUME (BEAKER) (test xkoc=254) 90.6 fL 79.0-92.2 MEAN CORPUSCULAR HEMOGLOBIN (BEAKER) (test 29.7 pg 25.7-32.2 ecym=211) MEAN CORPUSCULAR HEMOGLOBIN CONC (BEAKER) (test 32.8 GM/DL 32.3-36.5 mszz=753) RED CELL DISTRIBUTION WIDTH (BEAKER) (test 14.9 % 11.6-14.4 yegp=523) PLATELET COUNT (BEAKER) (test mpvv=808) 207 K/CU MM 150-450 MEAN PLATELET VOLUME (BEAKER) (test vrml=410) 10.2 fL 9.4-12.4 NUCLEATED RED BLOOD CELLS (BEAKER) (test 0 /100 WBC 0-0 hfsp=903) NEUTROPHILS RELATIVE PERCENT (BEAKER) (test 72 % zuab=948) LYMPHOCYTES RELATIVE PERCENT (BEAKER) (test 14 % uswa=682) MONOCYTES RELATIVE PERCENT (BEAKER) (test 7 % vjfq=703) EOSINOPHILS RELATIVE PERCENT (BEAKER) (test 2 % nklo=022) BASOPHILS RELATIVE PERCENT (BEAKER) (test 1 % wioz=387) NEUTROPHILS ABSOLUTE COUNT (BEAKER) (test 5.92 K/ L 1.78-5.38 mqlj=603) LYMPHOCYTES ABSOLUTE COUNT (BEAKER) (test 1.11 K/ L 1.32-3.57 hmvr=386) MONOCYTES ABSOLUTE COUNT (BEAKER) (test 0.55 K/ L 0.30-0.82 adxq=534) EOSINOPHILS ABSOLUTE COUNT (BEAKER) (test 0.13 K/ L 0.04-0.54 rlek=215) BASOPHILS ABSOLUTE COUNT (BEAKER) (test 0.09 K/ L 0.01-0.08 poct=046) IMMATURE GRANULOCYTES-RELATIVE PERCENT (BEAKER) 5 % 0-1 (test uiei=5550) POCT-GLUCOSE [id number] 21:08:00 Test Item Value Reference Range Comments POC-GLUCOSE METER (BEAKER) 195 mg/dL 70-110 TESTED AT [address] (test aute=4632) [facility] [address] POCT-GLUCOSE [id number] 18:00:00 Test Item Value Reference Range Comments POC-GLUCOSE METER (BEAKER) 175 mg/dL 70-110 TESTED AT [address] (test fumv=0034) [facility] [address] POCT-GLUCOSE [id number] 12:45:00 Test Item Value Reference Range Comments POC-GLUCOSE METER (BEAKER) 183 mg/dL 70-110 TESTED AT [address] (test dujs=5959) [facility] [address] POCT-GLUCOSE [id number] 08:34:00 Test Item Value Reference Range Comments POC-GLUCOSE METER (BEAKER) 127 mg/dL 70-110 TESTED AT [address] (test nldl=4424) [facility] [address] PROTEIN, 24 HOUR [id number] 08:28:00 Test Item Value Reference Range Comments PROTEIN, 24HR URINE (BEAKER) (test mbmq=1926) < mg/24hr 0-300 VOLUME, TOTAL (BEAKER) (test xqvw=1483) 1400 ml PROTEIN, URINE (BEAKER) (test yhfq=2813) < mg/dL 0-14 MICROALBUMIN, 24 HOUR [id number] 08:24:00 Test Item Value Reference Range Comments VOLUME, TOTAL (BEAKER) (test sihj=8278) 1400 ml MICROALBUMIN URINE (BEAKER) (test dyyp=6827) < mg/dL MICROALBUMIN 24 HOUR URINE (BEAKER) (test < mg/24 hrs 0-30 okur=163) URINE [id number] 07:44:00 Test Item Value Reference Range Comments CULTURE (BEAKER) (test 10-19,000 col/mL Claudia owix=0072) albicans [id number] 05:03:00 Test Item Value Reference Range Comments MAGNESIUM (BEAKER) (test 1.8 mg/dL 1.6-2.6 Specimen slightly hemolyzed gaze=553) BASIC METABOLIC [id number] 05:03:00 Test Item Value Reference Range Comments SODIUM (BEAKER) (test 134 meq/L 136-145 dmta=203) POTASSIUM (BEAKER) (test 4.3 meq/L 3.5-5.1 Specimen slightly xjrl=449) hemolyzed CHLORIDE (BEAKER) (test 104 meq/L 98-107 tcqu=086) CO2 (BEAKER) (test 24 meq/L 22-29 yncj=077) BLOOD UREA NITROGEN 9 mg/dL 7-21 (BEAKER) (test xggl=731) CREATININE (BEAKER) (test 0.55 mg/dL 0.57-1.25 Specimen slightly vhvo=377) hemolyzed GLUCOSE RANDOM (BEAKER) 104 mg/dL 70-105 (test jpss=852) CALCIUM (BEAKER) (test 8.1 mg/dL 8.4-10.2 zxpt=778) EGFR (BEAKER) (test 155 mL/min/1.73 sq m ESTIMATED GFR IS NOT cpsj=4971) ACCURATE CREATININE CLEARANCE IN PREDICTING GLOMERULAR FILTRATION RATE. ESTIMATED GFR IS NOT APPLICABLE FOR DIALYSIS PATIENTS. CBC W/PLT COUNT & AUTO [id number] 04:09:00 Test Item Value Reference Range Comments WHITE BLOOD CELL COUNT (BEAKER) (test uibo=968) 8.9 K/ L 3.5-10.5 RED BLOOD CELL COUNT (BEAKER) (test uxsf=103) 4.56 M/ L 4.63-6.08 HEMOGLOBIN (BEAKER) (test rwfv=782) 13.5 GM/DL 13.7-17.5 HEMATOCRIT (BEAKER) (test seui=145) 41.6 % 40.1-51.0 MEAN CORPUSCULAR VOLUME (BEAKER) (test nubc=888) 91.2 fL 79.0-92.2 MEAN CORPUSCULAR HEMOGLOBIN (BEAKER) (test 29.6 pg 25.7-32.2 xioz=240) MEAN CORPUSCULAR HEMOGLOBIN CONC (BEAKER) (test 32.5 GM/DL 32.3-36.5 swtj=984) RED CELL DISTRIBUTION WIDTH (BEAKER) (test 15.0 % 11.6-14.4 crlr=953) PLATELET COUNT (BEAKER) (test glaa=933) 217 K/CU MM 150-450 MEAN PLATELET VOLUME (BEAKER) (test imtc=646) 9.9 fL 9.4-12.4 NUCLEATED RED BLOOD CELLS (BEAKER) (test 0 /100 WBC 0-0 qhbr=756) NEUTROPHILS RELATIVE PERCENT (BEAKER) (test 74 % mlfu=702) LYMPHOCYTES RELATIVE PERCENT (BEAKER) (test 13 % pgyq=468) MONOCYTES RELATIVE PERCENT (BEAKER) (test 5 % pjjp=235) EOSINOPHILS RELATIVE PERCENT (BEAKER) (test 1 % fhdv=799) BASOPHILS RELATIVE PERCENT (BEAKER) (test 1 % tnca=202) NEUTROPHILS ABSOLUTE COUNT (BEAKER) (test 6.60 K/ L 1.78-5.38 yyjm=569) LYMPHOCYTES ABSOLUTE COUNT (BEAKER) (test 1.16 K/ L 1.32-3.57 sbpz=303) MONOCYTES ABSOLUTE COUNT (BEAKER) (test 0.48 K/ L 0.30-0.82 pwrd=001) EOSINOPHILS ABSOLUTE COUNT (BEAKER) (test 0.10 K/ L 0.04-0.54 uhol=787) BASOPHILS ABSOLUTE COUNT (BEAKER) (test 0.07 K/ L 0.01-0.08 csfs=643) IMMATURE GRANULOCYTES-RELATIVE PERCENT (BEAKER) 5 % 0-1 (test qynt=3358) POCT-GLUCOSE [id number] 21:03:00 Test Item Value Reference Range Comments POC-GLUCOSE METER (BEAKER) 198 mg/dL 70-110 TESTED AT [address] (test yvvm=8882) [place] [id number] POCT-GLUCOSE [id number] 16:56:00 Test Item Value Reference Range Comments POC-GLUCOSE METER (BEAKER) 126 mg/dL 70-110 TESTED AT [address] (test dars=5551) [place] [id number] CBC W/PLT COUNT & AUTO [id number] 13:38:00 Test Item Value Reference Range Comments WHITE BLOOD CELL COUNT (BEAKER) (test mabe=903) 9.1 K/ L 3.5-10.5 RED BLOOD CELL COUNT (BEAKER) (test izip=528) 4.96 M/ L 4.63-6.08 HEMOGLOBIN (BEAKER) (test puie=441) 14.7 GM/DL 13.7-17.5 HEMATOCRIT (BEAKER) (test kspy=447) 45.3 % 40.1-51.0 MEAN CORPUSCULAR VOLUME (BEAKER) (test gsjh=521) 91.3 fL 79.0-92.2 MEAN CORPUSCULAR HEMOGLOBIN (BEAKER) (test 29.6 pg 25.7-32.2 eshu=800) MEAN CORPUSCULAR HEMOGLOBIN CONC (BEAKER) (test 32.5 GM/DL 32.3-36.5 zryg=471) RED CELL DISTRIBUTION WIDTH (BEAKER) (test 15.1 % 11.6-14.4 gbhe=761) PLATELET COUNT (BEAKER) (test nwyb=699) 237 K/CU MM 150-450 MEAN PLATELET VOLUME (BEAKER) (test xpaf=487) 9.7 fL 9.4-12.4 NUCLEATED RED BLOOD CELLS (BEAKER) (test 0 /100 WBC 0-0 ejco=892) NEUTROPHILS RELATIVE PERCENT (BEAKER) (test 72 % qmlc=947) LYMPHOCYTES RELATIVE PERCENT (BEAKER) (test 15 % ylxt=211) MONOCYTES RELATIVE PERCENT (BEAKER) (test 5 % ivjd=967) EOSINOPHILS RELATIVE PERCENT (BEAKER) (test 1 % luyo=418) BASOPHILS RELATIVE PERCENT (BEAKER) (test 1 % ffbw=523) NEUTROPHILS ABSOLUTE COUNT (BEAKER) (test 6.54 K/ L 1.78-5.38 orxb=549) LYMPHOCYTES ABSOLUTE COUNT (BEAKER) (test 1.34 K/ L 1.32-3.57 oawq=472) MONOCYTES ABSOLUTE COUNT (BEAKER) (test 0.46 K/ L 0.30-0.82 hgpg=247) EOSINOPHILS ABSOLUTE COUNT (BEAKER) (test 0.11 K/ L 0.04-0.54 khxd=512) BASOPHILS ABSOLUTE COUNT (BEAKER) (test 0.08 K/ L 0.01-0.08 alcs=449) IMMATURE GRANULOCYTES-RELATIVE PERCENT (BEAKER) 6 % 0-1 (test bwnq=4346) (MANUAL DIFFERENTIAL)2017-04-17 13:38:00 Test Item Value Reference Range Comments TOTAL COUNTED (BEAKER) (test odrc=1210) WBC MORPHOLOGY (BEAKER) (test wyex=616) Normal PLT MORPHOLOGY (BEAKER) (test prmd=724) Normal RBC MORPHOLOGY (BEAKER) (test ilxd=320) Normal LIPID [id number] 13:17:00 Test Item Value Reference Range Comments TRIGLYCERIDES (BEAKER) (test ihtf=525) 222 mg/dL CHOLESTEROL (BEAKER) (test aako=285) 214 mg/dL HDL CHOLESTEROL (BEAKER) (test huwv=841) 29 mg/dL LDL CHOLESTEROL CALCULATED (BEAKER) (test 141 mg/dL dhxx=630) Triglyceride Reference Range: Low Risk <150 Borderline 150- 199 High Risk 200-499 Very High Risk >=500Cholesterol Reference Range: Low Risk <200 Borderline 200-239 High Risk > 240HDL Cholesterol Reference Range: Low Risk >=60 High Risk <40LDL Cholesterol Reference Range: Optimal <100 Near Optimal 100-129 Borderline 130-159 High 160-189 Very High >=190POCT-GLUCOSE [id number] 08:05:00 Test Item Value Reference Range Comments POC-GLUCOSE METER (BEAKER) 129 mg/dL 70-110 TESTED AT [facility] [address] [facility] (test rwtj=6085) [facility] [address] [id number] 04:40:00 Test Item Value Reference Range Comments MAGNESIUM (BEAKER) (test qiji=043) 2.0 mg/dL 1.6-2.6 BASIC METABOLIC [id number] 04:40:00 Test Item Value Reference Range Comments SODIUM (BEAKER) (test 137 meq/L 136-145 zsmj=481) POTASSIUM (BEAKER) (test 4.5 meq/L 3.5-5.1 mnyc=145) CHLORIDE (BEAKER) (test 101 meq/L 98-107 yglw=826) CO2 (BEAKER) (test 30 meq/L 22-29 btos=289) BLOOD UREA NITROGEN 13 mg/dL 7-21 (BEAKER) (test wzkr=204) CREATININE (BEAKER) (test 0.66 mg/dL 0.57-1.25 txwj=307) GLUCOSE RANDOM (BEAKER) 110 mg/dL 70-105 (test wgzl=281) CALCIUM (BEAKER) (test 8.8 mg/dL 8.4-10.2 cbqr=989) EGFR (BEAKER) (test 125 mL/min/1.73 sq m ESTIMATED GFR IS NOT fako=6136) ACCURATE CREATININE CLEARANCE IN PREDICTING GLOMERULAR FILTRATION RATE. ESTIMATED GFR IS NOT APPLICABLE FOR DIALYSIS PATIENTS. [id number] 04:27:00 Test Item Value Reference Range Comments PROTIME (BEAKER) (test vwxr=723) 13.1 seconds 11.7-14.7 INR (BEAKER) (test utru=992) 1.0 <=5.9 PARTIAL THROMBOPLASTIN TIME (BEAKER) (test 28.6 seconds 22.5-36.0 pxeg=741) RECOMMENDED COUMADIN/WARFARIN INR THERAPY RANGESSTANDARD DOSE: 2.0 - 3.0 Includes: PROPHYLAXIS forvenous thrombosis, systemic embolization; TREATMENT for venous thrombosis and/or pulmonary embolus.HIGH RISK: Target INR is 2.5-3.5 for patients with mechanical heart valves.POCT-GLUCOSE [id number] 21:33:00 Test Item Value Reference Range Comments POC-GLUCOSE METER (BEAKER) 223 mg/dL 70-110 TESTED AT [address] (test rkpl=8795) [place] [id number] POCT-GLUCOSE [id number] 18:07:00 Test Item Value Reference Range Comments POC-GLUCOSE METER (BEAKER) 114 mg/dL 70-110 TESTED AT [address] (test obkz=2484) [place] [id number] (MANUAL DIFFERENTIAL)[id number] 15:42:00 Test Item Value Reference Range Comments NEUTROPHILS - REL (DIFF) (BEAKER) (test 74 % mvat=7238) LYMPHOCYTES - REL (DIFF) (BEAKER) (test 11 % szms=9197) MONOCYTES - REL (DIFF) (BEAKER) (test vsvt=4334) 8 % METAMYELOCYTES-REL (DIFF) (BEAKER) (test 1 % 0-0 pawv=796) MYELOCYTES-REL (DIFF) (BEAKER) (test wopi=0107) 1 % 0-0 BANDS - REL (DIFF) (BEAKER) (test tcux=6843) 5 % 0-10 NEUTROPHILS - ABS (DIFF) (BEAKER) (test 6.81 K/ L 1.80-8.00 tfib=1273) LYMPHOCYTES - ABS (DIFF) (BEAKER) (test 1.01 K/ L 1.48-4.50 dzlr=0488) MONOCYTES - ABS (DIFF) (BEAKER) (test qxdu=9659) 0.74 K/ L 0.00-1.30 METAMYELOCTYES - ABS (DIFF) (BEAKER) (test 0.09 K/ L 0.00-0.00 snuu=166) BANDS-ABS (DIFF) (BEAKER) (test ikky=8593) 0.5 K/ L 0.0-0.8 MYELOCYTES-ABS (DIFF) (BEAKER) (test vgme=7829) 0.09 K/ L 0.00-0.00 TOTAL COUNTED (BEAKER) (test xylt=4365) 100 BANDS + SEGMENTED NEUTROPHILS (BEAKER) (test 7.27 crmv=4128) WBC MORPHOLOGY (BEAKER) (test xzqe=096) Normal PLT MORPHOLOGY (BEAKER) (test hbma=230) Normal POIKILOCYTES (BEAKER) (test qhip=242) 2+ moderate POLYCHROMATOPHILLIC RBCS(BEAKER) (test ujqn=950) 1+ few CBC W/PLT COUNT & AUTO [id number] 15:41:00 Test Item Value Reference Range Comments WHITE BLOOD CELL COUNT (BEAKER) (test zyxn=013) 9.2 K/ L 3.5-10.5 RED BLOOD CELL COUNT (BEAKER) (test hylw=827) 4.81 M/ L 4.63-6.08 HEMOGLOBIN (BEAKER) (test lgsz=701) 14.1 GM/DL 13.7-17.5 HEMATOCRIT (BEAKER) (test qgdu=503) 44.0 % 40.1-51.0 MEAN CORPUSCULAR VOLUME (BEAKER) (test drua=096) 91.5 fL 79.0-92.2 MEAN CORPUSCULAR HEMOGLOBIN (BEAKER) (test 29.3 pg 25.7-32.2 zzbm=606) MEAN CORPUSCULAR HEMOGLOBIN CONC (BEAKER) (test 32.0 GM/DL 32.3-36.5 tytg=297) RED CELL DISTRIBUTION WIDTH (BEAKER) (test 15.2 % 11.6-14.4 vees=631) PLATELET COUNT (BEAKER) (test nbrt=780) 196 K/CU MM 150-450 MEAN PLATELET VOLUME (BEAKER) (test blrn=062) 10.4 fL 9.4-12.4 NUCLEATED RED BLOOD CELLS (BEAKER) (test 0 /100 WBC 0-0 qohk=955) NEUTROPHILS RELATIVE PERCENT (BEAKER) (test 76 % wifd=326) LYMPHOCYTES RELATIVE PERCENT (BEAKER) (test 12 % ycgy=592) MONOCYTES RELATIVE PERCENT (BEAKER) (test 6 % zpab=539) EOSINOPHILS RELATIVE PERCENT (BEAKER) (test 1 % cbrc=798) BASOPHILS RELATIVE PERCENT (BEAKER) (test 0 % bpwq=946) NEUTROPHILS ABSOLUTE COUNT (BEAKER) (test 6.95 K/ L 1.78-5.38 qzgd=905) LYMPHOCYTES ABSOLUTE COUNT (BEAKER) (test 1.07 K/ L 1.32-3.57 utbo=796) MONOCYTES ABSOLUTE COUNT (BEAKER) (test 0.51 K/ L 0.30-0.82 ggwz=529) EOSINOPHILS ABSOLUTE COUNT (BEAKER) (test 0.10 K/ L 0.04-0.54 cvfz=206) BASOPHILS ABSOLUTE COUNT (BEAKER) (test 0.01 K/ L 0.01-0.08 slap=996) IMMATURE GRANULOCYTES-RELATIVE PERCENT (BEAKER) 6 % 0-1 (test vpei=0422) POCT-GLUCOSE [id number] 11:48:00 Test Item Value Reference Range Comments POC-GLUCOSE METER (BEAKER) 272 mg/dL 70-110 TESTED AT [address] (test dnof=2948) [place] [address] POCT-GLUCOSE [id number] 07:34:00 Test Item Value Reference Range Comments POC-GLUCOSE METER (BEAKER) 125 mg/dL 70-110 TESTED AT [address] (test fjbh=9389) [place] [address] [id number] 05:43:00 Test Item Value Reference Range Comments MAGNESIUM (BEAKER) (test pods=265) 2.0 mg/dL 1.6-2.6 BASIC METABOLIC [id number] 05:43:00 Test Item Value Reference Range Comments SODIUM (BEAKER) (test 139 meq/L 136-145 lczr=286) POTASSIUM (BEAKER) (test 3.7 meq/L 3.5-5.1 gbdk=196) CHLORIDE (BEAKER) (test 102 meq/L 98-107 ixhx=321) CO2 (BEAKER) (test 28 meq/L 22-29 rxzq=270) BLOOD UREA NITROGEN 16 mg/dL 7-21 (BEAKER) (test vuic=401) CREATININE (BEAKER) (test 0.58 mg/dL 0.57-1.25 iotd=759) GLUCOSE RANDOM (BEAKER) 130 mg/dL 70-105 (test hsel=661) CALCIUM (BEAKER) (test 8.8 mg/dL 8.4-10.2 ndxh=088) EGFR (BEAKER) (test 145 mL/min/1.73 sq m ESTIMATED GFR IS NOT nogr=3067) ACCURATE CREATININE CLEARANCE IN PREDICTING GLOMERULAR FILTRATION RATE. ESTIMATED GFR IS NOT APPLICABLE FOR DIALYSIS PATIENTS. URINALYSIS W/ [id number] 01:48:00 Test Item Value Reference Range Comments COLOR (BEAKER) (test lixh=510) Yellow CLARITY (BEAKER) (test mbeg=060) Clear SPECIFIC GRAVITY UA (BEAKER) (test fkrp=598) 1.017 1.001-1.035 PH UA (BEAKER) (test nfes=754) 7.0 5.0-8.0 PROTEIN UA (BEAKER) (test rrvq=433) Negative Negative GLUCOSE UA (BEAKER) (test mzyj=972) 300 mg/dL Negative KETONES UA (BEAKER) (test nlab=278) 10 mg/dL Negative BILIRUBIN UA (BEAKER) (test zjxf=320) Negative Negative BLOOD UA (BEAKER) (test cfoy=600) Negative Negative NITRITE UA (BEAKER) (test owjy=594) Negative Negative LEUKOCYTE ESTERASE UA (BEAKER) (test piop=673) Negative Negative UROBILINOGEN UA (BEAKER) (test opsj=991) 2.0 mg/dL 0.2-1.0 RBC UA (BEAKER) (test bdnh=261) < /HPF WBC UA (BEAKER) (test veov=790) 1 /HPF SQUAMOUS EPITHELIAL (BEAKER) (test ldbe=237) < /HPF SOURCE(BEAKER) (test ycnn=8768) Urine, Voided HEMOGLOBIN [id number] 22:45:00 Test Item Value Reference Range Comments HEMOGLOBIN A1C (BEAKER) (test gyny=388) 9.2 % 4.3-6.1 TROPONIN [id number] 21:44:00 Test Item Value Reference Range Comments TROPONIN I (BEAKER) (test vcqe=863) 0.32 ng/mL 0.00-0.03 Troponin I (TnI) levels [...] acidosis, acute neurological disease, and persistent tachyarrhythmia.POCT-GLUCOSE [id number] 21:42:00 Test Item Value Reference Range Comments POC-GLUCOSE METER (BEAKER) 286 mg/dL 70-110 TESTED AT [facility] [address] [facility] (test hpih=5702) [facility] [address] TSH/FREE T4 IF [id number] 21:42:00 Test Item Value Reference Range Comments THYROID STIMULATING HORMONE (BEAKER) (test 1.03 uIU/mL 0.35-4.94 xtvn=047) PROTHROMBIN TIME/[id number] 21:33:00 Test Item Value Reference Range Comments PROTIME (BEAKER) (test wgeh=152) 13.1 seconds 11.7-14.7 INR (BEAKER) (test sdul=472) 1.0 <=5.9 RECOMMENDED COUMADIN/WARFARIN INR THERAPY RANGESSTANDARD DOSE: 2.0 - 3.0 Includes: PROPHYLAXIS forvenous thrombosis, systemic embolization; TREATMENT for venous thrombosis and/or pulmonary embolus.HIGH RISK: Target INR is 2.5-3.5 for patients with mechanical heart valves.B-TYPE NATRIURETIC FACTOR (BNP)2017-03 21:28:00 Test Item Value Reference Range Comments B-TYPE NATRIURETIC PEPTIDE (BEAKER) (test 825 pg/mL 0-100 ruux=222) [id number] 21:24:00 Test Item Value Reference Range Comments MAGNESIUM (BEAKER) (test vdob=146) 2.0 mg/dL 1.6-2.6 BASIC METABOLIC [id number] 21:24:00 Test Item Value Reference Range Comments SODIUM (BEAKER) (test 137 meq/L 136-145 ctyp=722) POTASSIUM (BEAKER) (test 3.8 meq/L 3.5-5.1 gcac=574) CHLORIDE (BEAKER) (test 98 meq/L 98-107 helw=891) CO2 (BEAKER) (test 30 meq/L 22-29 ckrx=719) BLOOD UREA NITROGEN 18 mg/dL 7-21 (BEAKER) (test hrky=206) CREATININE (BEAKER) (test 0.74 mg/dL 0.57-1.25 hbvk=090) GLUCOSE RANDOM (BEAKER) 267 mg/dL 70-105 (test pyvx=052) CALCIUM (BEAKER) (test 8.9 mg/dL 8.4-10.2 wjna=001) EGFR (BEAKER) (test 110 mL/min/1.73 sq m ESTIMATED GFR IS NOT boox=6011) ACCURATE CREATININE CLEARANCE IN PREDICTING GLOMERULAR FILTRATION RATE. ESTIMATED GFR IS NOT APPLICABLE FOR DIALYSIS PATIENTS. HEPATIC FUNCTION [id number] 21:24:00 Test Item Value Reference Range Comments TOTAL PROTEIN (BEAKER) (test cuec=688) 5.9 gm/dL 6.0-8.3 ALBUMIN (BEAKER) (test cqcf=3190) 3.2 g/dL 3.5-5.0 BILIRUBIN TOTAL (BEAKER) (test cdoj=280) 1.1 mg/dL 0.2-1.2 BILIRUBIN DIRECT (BEAKER) (test mcnu=000) 0.3 mg/dL 0.1-0.5 ALKALINE PHOSPHATASE (BEAKER) (test sgmq=275) 105 U/L 40-150 AST (SGOT) (BEAKER) (test iuhh=289) 13 U/L 5-34 ALT (SGPT) (BEAKER) (test xpcp=619) 37 U/L 6-55 CBC W/PLT COUNT & AUTO [id number] 21:24:00 Test Item Value Reference Range Comments WHITE BLOOD CELL COUNT (BEAKER) (test fgzn=906) 8.9 K/ L 3.5-10.5 RED BLOOD CELL COUNT (BEAKER) (test zgct=805) 4.91 M/ L 4.63-6.08 HEMOGLOBIN (BEAKER) (test owld=564) 14.4 GM/DL 13.7-17.5 HEMATOCRIT (BEAKER) (test uwji=608) 44.4 % 40.1-51.0 MEAN CORPUSCULAR VOLUME (BEAKER) (test fyzu=096) 90.4 fL 79.0-92.2 MEAN CORPUSCULAR HEMOGLOBIN (BEAKER) (test 29.3 pg 25.7-32.2 llya=241) MEAN CORPUSCULAR HEMOGLOBIN CONC (BEAKER) (test 32.4 GM/DL 32.3-36.5 duue=800) RED CELL DISTRIBUTION WIDTH (BEAKER) (test 15.0 % 11.6-14.4 bmas=499) PLATELET COUNT (BEAKER) (test pvnz=202) 249 K/CU MM 150-450 MEAN PLATELET VOLUME (BEAKER) (test nakv=209) 10.0 fL 9.4-12.4 NUCLEATED RED BLOOD CELLS (BEAKER) (test 0 /100 WBC 0-0 rvgs=364) NEUTROPHILS RELATIVE PERCENT (BEAKER) (test 82 % hrga=515) LYMPHOCYTES RELATIVE PERCENT (BEAKER) (test 9 % earv=072) MONOCYTES RELATIVE PERCENT (BEAKER) (test 5 % xldw=115) EOSINOPHILS RELATIVE PERCENT (BEAKER) (test 0 % edgt=224) BASOPHILS RELATIVE PERCENT (BEAKER) (test 0 % ojkd=022) NEUTROPHILS ABSOLUTE COUNT (BEAKER) (test 7.24 K/ L 1.78-5.38 qjlh=699) LYMPHOCYTES ABSOLUTE COUNT (BEAKER) (test 0.80 K/ L 1.32-3.57 tpcj=403) MONOCYTES ABSOLUTE COUNT (BEAKER) (test 0.40 K/ L 0.30-0.82 ogvi=809) EOSINOPHILS ABSOLUTE COUNT (BEAKER) (test 0.01 K/ L 0.04-0.54 snbx=521) BASOPHILS ABSOLUTE COUNT (BEAKER) (test 0.01 K/ L 0.01-0.08 gblj=615) IMMATURE GRANULOCYTES-RELATIVE PERCENT (BEAKER) 5 % 0-1 (test zpre=7127) LACTIC ACID, VENOUS, WHOLE [id number] 21:18:00 Test Item Value Reference Range Comments LACTATE BLOOD VENOUS (2) 1.2 mmol/L 0.5-2.2 Specimen moderately hemolyzed (BEAKER) (test wkbx=2960) Effective 08/18/2015: Units/Reference Range ChangeNew: 0.5-2.2 mmol/L Previous: 5 -20 mg/dLRAD, CHEST, 1 VIEW, NON [id number] 21:06:00Reason for exam:-> shortness of breathShould this [...] MDReport Verified Date/Time: 04/15/2017 21:06:26 Reading Location: [address] Reading Room
[2018-12-22] MEDS ORDERED: NA CHLORIDE 0.9% 1,000 ML ONE (18:48)
--- NOTE | 2018-12-22 18:53 | RAD REPORT ---
EXAM DESCRIPTION: RAD - Chest Single View - 12/22/2018 6:44 pm CLINICAL HISTORY: FEVER Chest pain. COMPARISON: Chest Single View dated 04/13/2017; Chest Pa And Lat (2 Views) dated 02/10/2017Chest Sin gle View dated 04/13/2017; Chest Pa And Lat (2 Views) dated 02/10/2017 FINDINGS: Portable technique limits examination quality. Early/vague infiltrate is suspected in the right mid lung and right lung base compatible with pneumon ia. The heart is mildly to moderately enlarged. The left lung is grossly clear.
[2018-12-22 19:40] LABS: Absolute Lymphocytes (CBC) 1.9 K/uL (0.7-4.9); Basophils % 0.6 % (0-1.3); Hematocrit 39.9 % (39.6-49.0); Lymphocytes % 22.2 % (15.3-44.8); MPV 7.9 fL (7.6-11.3); RBC Red Blood Cell Count 4.31 M/uL (4.33-5.43)
[2018-12-22 19:43] LABS: Protime INR 1.14
[2018-12-22 19:56] LABS: ALT/SGPT 26 U/L (12-78); AST/SGOT 16 U/L (15-37); Albumin 2.9 g/dL (3.4-5.0); Alkaline Phosphatase 92 U/L (45-117); BUN Blood Urea Nitrogen 9 mg/dL (7-18); Bicarbonate 26 mmol/L (21-32); Bilirubin Direct 0.2 mg/dL (0-0.2); Bilirubin Total 0.6 mg/dL (0.2-1.0); CKMB Creatine Kinase MB < 1.0 ng/mL (0.3-3.6); Creatine Phosphokinase 36 U/L (39-308); Glucose Level 138 mg/dL (74-106); Lipase 65 U/L (73-393); Potassium 3.7 mmol/L (3.5-5.1); Protein, Total 7.1 g/dL (6.4-8.2); Sodium Level 144 mmol/L (136-145); Troponin (Emerg Dept Use Only) < 0.02 ng/mL (0.0-0.045)
[2018-12-22] MEDS ORDERED: Levofloxacin500mg IV 500 MG/100 ML BAG IV ONE (20:23)
[2018-12-22] MEDS ORDERED: CEFTRIAXONE/SWI 1gm 1 GM/10 ML SYR ONE (20:23)
--- NOTE | 2018-12-22 21:33 | EDPHYS ---
Physician Documentation [facility] Name: Mahamed Lanza Age: 58 yrs Sex: Male : 1960 Arrival Date: 12/22/2018 Time: 16:42 Bed 20 Private MD: ED Physician Erich Cartagena HPI: 12/22 20:17 This 58 yrs old Male presents to ER via Ambulatory with complaints of Fever. snw 20:17 The patient reports fever, not measured (subjective), chills. Onset: The snw symptoms/episode began/occurred gradually, 3 day(s) ago, and became persistent. Associated signs and symptoms: Pertinent positives: lower ext edema. Severity of symptoms: At their worst the symptoms were moderate in the emergency department the symptoms have improved. It is unknown whether or not the patient has had similar symptoms in the past. PCP is clinic . Historical: - Allergies: 17:15 NKA; aj1 - Home Meds: 17:15 Metformin Oral [Active]; Lisinopril Oral [Active]; aj1 - PMHx: 17:15 Asthma; Diabetes - NIDDM; Hypertension; aj1 - Immunization history:: Flu vaccine is not up to date. - Social history:: Smoking status: Patient/guardian denies using tobacco. - Ebola Screening: : Patient denies travel to an Ebola-affected area in the 21 days before illness onset. ROS: 20:16 Constitutional: Negative for fever and weight loss, + chills Eyes: Negative for injury, snw pain, redness, and discharge, ENT: Negative for injury, pain, and discharge, Neck: Negative for injury, pain, and swelling, Cardiovascular: Negative for chest pain, palpitations, and edema. 20:16 Back: Negative for injury and pain, : Negative for injury, bleeding, discharge, and swelling, MS/Extremity: Negative for injury and deformity, + lower extremity edema Neuro: Negative for headache, weakness, numbness, tingling, and seizure. 20:16 Respiratory: Positive for cough, with no reported sputum. 20:16 Skin: Positive for lower extremities with mild erythema, edema. Exam: 20:14 Head/Face: Normocephalic, atraumatic. Eyes: Pupils equal round and reactive to light, snw extra-ocular motions intact. Lids and lashes normal. Conjunctiva and sclera are non-icteric and not injected. Cornea within normal limits. Periorbital areas with no swelling, redness, or edema. ENT: Nares patent. No nasal discharge, no septal abnormalities noted. Tympanic membranes are normal and external auditory canals are clear. Oropharynx with no redness, swelling, or masses, exudates, or evidence of obstruction, uvula midline. Mucous membranes moist. Neck: Trachea midline, no thyromegaly or masses palpated, and no cervical lymphadenopathy. Supple, full range of motion without nuchal rigidity, or vertebral point tenderness. No Meningismus. Chest/axilla: Normal chest wall appearance and motion. Nontender with no deformity. No lesions are appreciated. Cardiovascular: Regular rate and rhythm with a normal S1 and S2. No gallops, murmurs, or rubs. Normal PMI, no JVD. No pulse deficits. Abdomen/GI: Soft, non-tender, with normal bowel sounds. No distension or tympany. No guarding or rebound. No evidence of tenderness throughout. 20:14 Back: No spinal tenderness. No costovertebral tenderness. Full range of motion. MS/ Extremity: Pulses equal, no cyanosis. Neurovascular intact. Full, normal range of motion. Neuro: Awake and alert, GCS 15, oriented to person, place, time, and situation. Cranial nerves II-XII grossly intact. Motor strength 5/5 in all extremities. Sensory grossly intact. Cerebellar exam normal. Normal gait. 20:14 Constitutional: The patient appears alert, awake, febrile. 20:14 Respiratory: the patient does not display signs of respiratory distress, Respirations: shallow respirations, Breath sounds: bronchial sounds, wheezin:14 Skin: Appearance: normal except for affected area, lower extremities with peeling, mild erythema, mild edema, DVT study negative. Vital Signs: 17:15 BP 146 / 92; Pulse 98; Resp 20; Temp 98.1; Pulse Ox 98% on R/A; Weight 80.74 kg (R); aj1 Height 5 ft. 7 in. (170.18 cm) (R); Pain 0/10; 19:27 BP 135 / 86; Pulse 95; Resp 17; Temp 98.7; Pulse Ox 99% ; rr5 20:00 BP 134 / 79; Pulse 83; Resp 20; Pulse Ox 98% ; rr5 21:00 BP 121 / 89; Pulse 86; Resp 18; Pulse Ox 98% ; rr5 22:00 BP 126 / 70; Pulse 80; Resp 19; Pulse Ox 98% ; rr5 22:50 BP 137 / 70; Pulse 83; Resp 20; Temp 98.8; Pulse Ox 96% ; rr5 17:15 Body Mass Index 27.88 (80.74 kg, 170.18 cm) aj1 MDM: 18:27 Patient medically screened. snw 21:32 Data reviewed: vital signs, nurses notes. Data interpreted: Pulse oximetry: on room air snw is 99 %. Interpretation: normal. Counseling: I had a detailed discussion with the patient and/or guardian regarding: the historical points, exam findings, and any diagnostic results supporting the discharge/admit diagnosis, the presence of at least one elevated blood pressure reading (>120/80) during this emergency department visit, lab results, radiology results, the need for further work-up and treatment in the hospital. Physician consultation: Dallas Palacios DO was called at 21:32, was contacted at 21:32, regarding admission, in the emergency department to see patient at 21:32. 12/22 18:29 Order name: Urine Culture snw 12/22 18:29 Order name: Basic Metabolic Panel; Complete Time: 19:58 snw 12/22 18:29 Order name: Blood Culture Adult (2) snw 12/22 18:29 Order name: CBC with Diff; Complete Time: 19:47 snw 12/22 18:29 Order name: Ckmb; Complete Time: 19:58 snw 12/22 18:29 Order name: CPK; Complete Time: 19:58 snw 12/22 18:29 Order name: Lactate; Complete Time: 19:58 snw 12/22 18:29 Order name: LFT's; Complete Time: 19:58 snw 12/22 18:29 Order name: Lipase; Complete Time: 19:58 snw 12/22 18:29 Order name: Procalcitonin; Complete Time: 20:21 snw 12/22 18:29 Order name: Protime (+inr); Complete Time: 19:47 snw 12/22 18:29 Order name: Ptt, Activated; Complete Time: 19:47 snw 12/22 18:29 Order name: Troponin (emerg Dept Use Only); Complete Time: 19:58 snw 12/22 18:29 Order name: Urine Microscopic Only snw 12/22 18:29 Order name: Chest Single View XRAY; Complete Time: 19:11 snw 12/22 18:29 Order name: Accucheck; Complete Time: 19:25 snw 12/22 18:29 Order name: Cardiac monitoring; Complete Time: 19:21 snw 12/22 18:29 Order name: EKG - Nurse/Tech; Complete Time: 19:20 snw 12/22 18:29 Order name: IV Saline Lock - Large Bore; Complete Time: 19:20 snw 12/22 18:29 Order name: Labs collected and sent; Complete Time: 19:20 snw 12/22 18:29 Order name: O2 Per Protocol; Complete Time: 19:20 snw 12/22 18:29 Order name: O2 Sat Monitoring; Complete Time: 19:20 snw 12/22 18:29 Order name: Urine Dipstick-Ancillary (obtain specimen); Complete Time: 23:16 snw 12/22 18:54 Order name: US Extremity Venous W Compression Mark; Complete Time: 21:58 snw 12/22 19:28 Order name: Glucose, Ancillary Testing; Complete Time: 19:47 EDMS 12/22 20:14 Order name: Misc. Order: Please increase IVF rate to bolus; Complete Time: 20:20 snw Administered Medications: 19:21 Drug: NS 0.9% 1000 ml Route: IV; Rate: 125 ml/hr; Site: right antecubital; rr5 20:34 Follow up: Rate change bolus rr5 21:30 Follow up: Response: No adverse reaction; IV Status: Completed infusion; IV Intake: rr5 1000ml 20:05 Drug: Rocephin 1 grams Route: IV; Rate: calculated rate; Site: right antecubital; rr5 20:35 Follow up: Response: No adverse reaction; IV Status: Completed infusion; IV Intake: 85fxol2 20:33 Drug: LevaQUIN 500 mg Volume: 100 ml; Route: IVPB; Infused Over: 60 mins; Site: right rr5 antecubital; 21:30 Follow up: Response: No adverse reaction; IV Status: Completed infusion; IV Intake: rr5 100ml Point of Care Testing: Blood Glucose: 19:25 Blood Glucose: 143 mg/dL; jp3 Ranges: Critical Glucose Levels:Adult <50 mg/dl or >400 mg/dl <40 mg/dl or >180 mg/dl Disposition: 12/23 07:13 Co-signature as Attending Physician, Erich Cartagena MD. rn Disposition: 12/22/18 21:32 Hospitalization ordered by Dallas Palacios for Observation. Preliminary diagnosis are Pneumonia, unspecified organism, Diabetes mellitus due to underlying condition, Renal insufficiency. - Bed requested for Telemetry/MedSurg (observation). - Status is Observation. rr5 - Condition is Stable. - Problem is new. - Symptoms are unchanged. UTI on Admission? No Signatures: Dispatcher [employer] EDMS Sravani Capps RN RN aj1 Paty Ta, JATIN-C CLINICAL PROJECT LEADER-Csnw Erich Cartagena MD MD rn Garcia, Cindy, RN RN cg Roque, Raymond, RN RN rr5 Corrections: (The following items were deleted from the chart) 12/22 22:27 21:32 Hospitalization Ordered by Dallas Palacios DO for Observation. Preliminary cg diagnosis is Pneumonia, unspecified organism; Diabetes mellitus due to underlying condition; Renal insufficiency. Bed requested for Telemetry/MedSurg (observation). Status is Observation. Condition is Stable. Problem is new. Symptoms are unchanged. UTI on Admission? No. snw 22:40 22:27 12/22/2018 21:32 Hospitalization Ordered by Dallas Palacios DO for Observation. cg Preliminary diagnosis is Pneumonia, unspecified organism; Diabetes mellitus due to underlying condition; Renal insufficiency. Bed requested for Telemetry/MedSurg (observation). Status is Observation. Condition is Stable. Problem is new. Symptoms are unchanged. UTI on Admission? No. cg 23:17 22:40 12/22/2018 21:32 Hospitalization Ordered by Dallas Palacios DO for Observation. rr5 Preliminary diagnosis is Pneumonia, unspecified organism; Diabetes mellitus due to underlying condition; Renal insufficiency. Bed requested for Telemetry/MedSurg (observation). Status is Observation. Condition is Stable. Problem is new. Symptoms are unchanged. UTI on Admission? No. cg
--- NOTE | 2018-12-22 21:33 | ER ---
Nurse's Notes [facility] Name: Mahamed Lanza Age: 58 yrs Sex: Male : 1960 Arrival Date: 12/22/2018 Time: 16:42 Bed 20 Private MD: Diagnosis: Pneumonia, unspecified organism;Diabetes mellitus due to underlying condition;Renal insufficiency Presentation: 12/22 17:10 Presenting complaint: Patient states: He was seen at a clinic he's been having swelling aj1 in his feet and he has been running fever since last Sunday. Reports that he has been feeling unwell for the past 2 weeks. Denies shortness of breath. Denies chest pain. Transition of care: patient was not received from another setting of care. Onset of symptoms was December 16, 2018. Risk Assessment: Do you want to hurt yourself or someone else? Patient reports no desire to harm self or others. Initial Sepsis Screen: Does the patient meet any 2 criteria? HR > 90 bpm. No. Patient's initial sepsis screen is negative. Does the patient have a suspected source of infection? No. Patient's initial sepsis screen is negative. Care prior to arrival: None. 17:10 Method Of Arrival: Ambulatory aj1 17:10 Acuity: LORA 3 aj1 Triage Assessment: 17:15 General: Appears in no apparent distress. comfortable, Behavior is calm, cooperative, aj1 appropriate for age. Pain: Denies pain. Neuro: Level of Consciousness is awake, alert, obeys commands. Cardiovascular: Patient's skin is warm and dry. Respiratory: Airway is patent Respiratory effort is even, unlabored, Respiratory pattern is regular, symmetrical. Historical: - Allergies: 17:15 NKA; aj1 - Home Meds: 17:15 Metformin Oral [Active]; Lisinopril Oral [Active]; aj1 - PMHx: 17:15 Asthma; Diabetes - NIDDM; Hypertension; aj1 - Immunization history:: Flu vaccine is not up to date. - Social history:: Smoking status: Patient/guardian denies using tobacco. - Ebola Screening: : Patient denies travel to an Ebola-affected area in the 21 days before illness onset. Screenin:33 Abuse screen: Denies threats or abuse. Nutritional screening: No deficits noted. em Tuberculosis screening: No symptoms or risk factors identified. Fall Risk None identified. Assessment: 18:33 General: Appears in no apparent distress. comfortable, Behavior is calm, cooperative, em Reports fever for > 3 days. Pain: Denies pain. Neuro: Level of Consciousness is awake, alert, obeys commands, Oriented to person, place, time, situation, Appropriate for age. Cardiovascular: Denies chest pain, shortness of breath, Capillary refill < 3 seconds Patient's skin is warm and dry. Respiratory: Airway is patent Respiratory effort is even, unlabored, Respiratory pattern is regular, symmetrical. GI: Abdomen is flat, Reports nausea, vomiting. Derm: Skin is intact, is healthy with good turgor, Skin is pink, warm \T\ dry. Musculoskeletal: Capillary refill < 3 seconds, Range of motion: intact in all extremities. 18:40 Reassessment: The previous assessment is accurate. Call light remains within reach. ss 19:28 General: Appears in no apparent distress. comfortable, Behavior is calm, cooperative, rr5 appropriate for age, Reports fever for > 3 days, nor feeling well. Pain: Denies pain. Neuro: Level of Consciousness is awake, alert, obeys commands, Oriented to person, place, time, situation, Appropriate for age. Cardiovascular: Denies chest pain, shortness of breath, Capillary refill < 3 seconds Patient's skin is warm and dry. Respiratory: Airway is patent Respiratory effort is even, unlabored, Respiratory pattern is regular, symmetrical. GI: Abdomen is round. : No signs and/or symptoms were reported regarding the genitourinary system. EENT: No signs and/or symptoms were reported regarding the EENT system. Derm: Skin is healthy with good turgor, Skin is pink, warm \T\ dry. Musculoskeletal: Capillary refill < 3 seconds, Swelling present in right leg and left leg. 20:30 Reassessment: Patient appears in no apparent distress at this time. Patient and/or rr5 family updated on plan of care and expected duration. Pain level reassessed. Patient is alert, oriented x 3, equal unlabored respirations, skin warm/dry/pink. no complaints made awaiting for results. 21:30 Reassessment: Patient appears in no apparent distress at this time. Patient and/or rr5 family updated on plan of care and expected duration. Pain level reassessed. Patient is alert, oriented x 3, equal unlabored respirations, skin warm/dry/pink. 21:50 Reassessment: Patient appears in no apparent distress at this time. Patient is alert, rr5 oriented x 3, equal unlabored respirations, skin warm/dry/pink. seen and examined by dr. girard for admission. Patient denies pain at this time. Patient states feeling better. Patient states symptoms have improved. 22:50 Reassessment: Patient appears in no apparent distress at this time. Patient is alert, rr5 oriented x 3, equal unlabored respirations, skin warm/dry/pink. endorsed to 4 th floor accepted the case. Patient denies pain at this time. Patient states symptoms have improved. Vital Signs: 17:15 BP 146 / 92; Pulse 98; Resp 20; Temp 98.1; Pulse Ox 98% on R/A; Weight 80.74 kg (R); aj1 Height 5 ft. 7 in. (170.18 cm) (R); Pain 0/10; 19:27 BP 135 / 86; Pulse 95; Resp 17; Temp 98.7; Pulse Ox 99% ; rr5 20:00 BP 134 / 79; Pulse 83; Resp 20; Pulse Ox 98% ; rr5 21:00 BP 121 / 89; Pulse 86; Resp 18; Pulse Ox 98% ; rr5 22:00 BP 126 / 70; Pulse 80; Resp 19; Pulse Ox 98% ; rr5 22:50 BP 137 / 70; Pulse 83; Resp 20; Temp 98.8; Pulse Ox 96% ; rr5 17:15 Body Mass Index 27.88 (80.74 kg, 170.18 cm) aj1 ED Course: 16:42 Patient arrived in ED. as 17:13 Triage completed. aj1 17:15 Arm band placed on Patient placed in waiting room, Patient notified of wait time. aj1 18:13 Pillo Gtz LVN is Primary Nurse. em 18:27 Paty Ta FNP-C is PHCP. snw 18:27 Erich Cartagena MD is Attending Physician. snw 18:33 Patient has correct armband on for positive identification. Placed in gown. Bed in low em position. Call light in reach. ekg monitor tech on. Pulse ox on. NIBP on. 18:44 Chest Single View XRAY In Process Unspecified. EDMS 18:55 Initial lab(s) drawn, by me, sent to lab. First set of blood cultures drawn by me. [email or web address] Inserted saline lock: 22 gauge in right antecubital area, using aseptic technique. Blood collected. 19:12 Second set of blood cultures drawn by me, EKG done, by ED staff, reviewed by Paty LARA. 19:18 Patient maintains SpO2 saturation greater than 95% on room air. jp3 19:54 Ultrasound completed. Patient tolerated well. Notified BRIDAL SALES CONSULTANT/PA paty. sg3 21:17 US Extremity Venous W Compression Mark In Process Unspecified. EDMS 21:30 Dallas Girard DO is Hospitalizing Provider. snw 22:54 No provider procedures requiring assistance completed. Patient admitted, IV remains in rr5 place. intact, No redness/swelling at site. Administered Medications: 19:21 Drug: NS 0.9% 1000 ml Route: IV; Rate: 125 ml/hr; Site: right antecubital; rr5 20:34 Follow up: Rate change bolus rr5 21:30 Follow up: Response: No adverse reaction; IV Status: Completed infusion; IV Intake: rr5 1000ml 20:05 Drug: Rocephin 1 grams Route: IV; Rate: calculated rate; Site: right antecubital; rr5 20:35 Follow up: Response: No adverse reaction; IV Status: Completed infusion; IV Intake: [id number] 20:33 Drug: LevaQUIN 500 mg Volume: 100 ml; Route: IVPB; Infused Over: 60 mins; Site: right rr5 antecubital; 21:30 Follow up: Response: No adverse reaction; IV Status: Completed infusion; IV Intake: rr5 100ml Point of Care Testing: Blood Glucose: 19:25 Blood Glucose: 143 mg/dL; jp3 Ranges: Intake: 20:35 IV: 10ml; Total: 10ml. rr5 21:30 IV: 100ml; Total: 110ml. rr5 21:30 IV: 1000ml; Total: 1110ml. rr5 Outcome: 21:32 Decision to Hospitalize by Provider. snw 22:53 Admitted to Tele accompanied by tech, via wheelchair, room 414, with chart, Report rr5 called to logan 22:53 Condition: stable 22:53 Instructed on the need for admit. 23:17 Patient left the ED. rr5 Signatures: Dispatcher [employer] Sravani Santiago, RN RN aj1 Paty Ta, BOOK TRIMMER-C BOOK TRIMMER-Csnw Pillo Gtz, DOOR TO DOOR SELLING DISTRIBUTOR DOOR TO DOOR SELLING DISTRIBUTOR Teena Oliva Shelby, RN RN ss Marlin Arevalo sg3 Sourav Mooney jp3 Pedro San RN RN rr5
--- NOTE | 2018-12-22 21:53 | RAD REPORT ---
EXAM DESCRIPTION: US - Extrem Venous W Compress Mark - 12/22/2018 9:15 pm CLINICAL HISTORY: SWELLING Bilateral leg edema and swelling. COMPARISON: <Comparisons> TECHNIQUE: Real-time sonographic interrogation of the left and right lower extremity deep venous sys tems was performed. FINDINGS: Normal compressibility, flow augmentation, phasic flow and spontaneous flow is identified in both the left and right lower extremity deep venous systems. IMPRESSION: No sonographic evidence of left or right lower extremity deep venous thrombosis.
--- NOTE | 2018-12-22 22:44 | P.HP ---
Certification for Inpatient Patient admitted to: Observation With expected LOS: <2 Midnights Patient will require the following post-hospital care: None Practitioner: I am a practitioner with admitting privileges, knowledge of patient current condition, hospital course, and medical plan of care. Services: Services provided to patient in accordance with Admission requirements found in Title 42 Section 412.3 of the Code of Federal Regulations Patient History Date of Service: 12/22/18 Primary Care Provider: Chirag Oden in [place], [place] Reason for admission: Fever, fatigue, shortness of breath History of Present Illness: 58-year-old male presented to the emergency room with fever, fatigue and shortness of breath. Patient with history of diabetes and hypertension. The patient reports that he was seen by his PCP recently. It was noted that he had a fever. There were concerned for infection. Patient also had cough, shortness of breath. There was also some mention of edema to the lower extremity. Fatigue was noted. He has had a mild cough with congestion. No sick contacts noted. He came to the ER as recommended by a PCP. In the ER patient evaluated. Vital signs stable. White count 8.3, hemoglobin stable. Platelet count of 413. Creatinine 1.67 with a GFR 47. Glucose 138. Lactic acid within normal range but pro calcitonin elevated at 15.5. Venous Doppler of the lower extremity negative. Chest x-ray showed right middle to lower lobe pneumonia. Patient was given IV fluids and antibiotic therapy in the emergency room. He was admitted for further evaluation and treatment. When I saw the patient the ER, he appeared comfortable. He did not look in any respiratory distress. Allergies No Known Allergies Allergy (Verified 04/13/17 09:23) Home medications list reviewed: Yes Home Medications: Metformin HCl [Metformin ER Osmotic] 500 mg PO DAILY 04/13/17 Enoxaparin Sodium [Lovenox 40 MG INJ*] 40 mg SQ DAILY 5 PM syr 04/15/17 Furosemide [Lasix 40 MG INJ*] 40 mg IV BIDL vial 04/15/17 Insulin -Regular Human [Novolin -R*] See Protocol SQ ACHS ml 04/15/17 Lisinopril [Prinivil*] 10 mg PO DAILY tab 04/15/17 Metoprolol Tartrate [Lopressor*] 12.5 mg PO BID 6AM 6PM tab 04/15/17 Spironolactone [Aldactone*] 25 mg PO DAILY tab 04/15/17 - Past Medical/Surgical History Diabetic: Yes -: Diabetes mellitus type 2, non-insulin dependent -: Hypertension Past Surgical History: Patient denies surgical history Psychosocial/ Personal History: Patient is - Family History Family History: Reviewed- Non-Contributory - Social History Smoking Status: Never smoker Alcohol use: Yes CD- Drugs: No Caffeine use: Yes Place of Residence: Home Review of Systems General: Fever, Weakness, As per HPI Eyes: Unremarkable ENT: Nose Congestion, As per HPI Respiratory: Cough, Shortness of Breath, As per HPI Cardiovascular: Unremarkable Gastrointestinal: Unremarkable Genitourinary: Unremarkable Musculoskeletal: Pedal edema, As per HPI Neurological: Unremarkable Lymphatics: Unremarkable Physical Examination - Physical Exam General: Alert, In no apparent distress, Oriented x3, Cooperative HEENT: Atraumatic, Normocephalic, PERRLA, Mucous membr. moist/pink Neck: Supple, No Thyromegaly Respiratory: Crackles/rales (Crackles to the right base but good air movement) Cardiovascular: Normal pulses, Regular rate/rhythm Gastrointestinal: Normal bowel sounds, Soft and benign, Non-distended, No tenderness, No masses, No rebound, No guarding Musculoskeletal: No erythema, No tenderness, No warmth Integumentary: No tenderness/swelling, No erythema, No warmth, No cyanosis Neurological: Normal speech, Normal strength at 5/5 x4 extr, Normal tone, Normal affect - Studies Laboratory Data (last 24 hrs) 12/22/18 18:55: PT 13.4 H, INR 1.14, APTT 33.9 12/22/18 18:55: WBC 8.3, Hgb 14.0, Hct 39.9, Plt Count 413 H 12/22/18 18:55: Sodium 144, Potassium 3.7, BUN 9, Creatinine 1.67 H, Glucose 138 H, Total Bilirubin 0.6, AST 16, ALT 26, Alkaline Phosphatase 92, Lipase 65 L Assessment and Plan - Plan Impression: Shortness of breath secondary to right middle and lower lobe pneumonia doubt sepsis Acute renal injury likely related to medication Hypertension Diabetes mellitus type 2, [id number] Plan: Shortness of breath secondary to right middle and lower lobe pneumonia doubt sepsis: Patient will be admitted for further evaluation and treatment. IV antibiotic therapy initiated. Patient on Rocephin and Zithromax. Will provide medication for cough, congestion. Will provide medication for shortness of breath. Will maintain sats above 90%. Wean off oxygen over the next 12-24 hr. Recheck chest surgery tomorrow. Will check echocardiogram to further evaluate. DVT prophylaxis-Lovenox initiated. Patient will get IV fluids due to acute renal injury. Recheck pro calcitonin tomorrow. I will turn the service over to Dr. Wagoner tomorrow. I will go over the plan of care with him. Anticipate possible discharge tomorrow if clinically improved. Acute renal injury likely related to medication: Will hold lisinopril/ hydrochlorothiazide. Will continue with IV fluids. Will check renal ultrasound. Will monitor renal function. May need to make adjustments of his blood pressure medication at discharge. Hypertension: Will discontinue lisinopril hydrochlorothiazide due to acute renal failure. Medication may need to be adjusted at discharge. Will provide IV medication as needed. Diabetes mellitus type 2, [id number]: Will check A1c. Will monitor Accu-Cheks and provide sliding scale. Discharge Plan: Home Plan to discharge in: 48 Hours - Advance Directives Does patient have a Living Will: No Does patient have a Durable POA for Healthcare: No - Code Status/Comfort Care Code Status Assessed: Yes (Patient is full code) Time Spent Managing Pts Care (In Minutes): 55
[2018-12-22] MEDS ORDERED: IPRATROPIUM BROM 0.5MG/2.5ML NEB PRN (23:06)
[2018-12-22] MEDS ORDERED: ONDANSETRON 4 MG/2 ML VIAL IV PRN (23:06)
[2018-12-22] MEDS ORDERED: HYDRALAZINE HCL 20 MG/ML VIAL IV PRN (23:06)
[2018-12-22] MEDS ORDERED: NA CHLORIDE 0.9% 1,000 ML IV SCH (23:06)
[2018-12-22] MEDS ORDERED: GUAIFENESIN 600 MG SA TAB PO PRN (23:06)
[2018-12-22] MEDS ORDERED: BENZONATATE 100 MG CAP PO PRN (23:06)
[2018-12-22] MEDS ORDERED: ACETAMINOPHEN 500 MG TAB PO PRN (23:06)
[2018-12-22] MEDS ORDERED: ALBUTEROL 2.5 MG/3 ML NEB SOL NEB PRN (23:06)
[2018-12-22] MEDS ORDERED: ACETAMINOPHEN 650MG/RECT SUPP RECT PRN (23:06)
[2018-12-22 23:29] VITALS: BMI 26.7
[2018-12-22 23:57] LABS: Urine Culture Reflex Order NOT NEEDED
[2018-12-22 23:58] LABS: Urine Bacteria <20 /HPF (NONE SEEN); Urine RBC <5 /HPF (NONE SEEN)
--- NOTE | 2018-12-23 03:49 | P.DS ---
Admission Date: 12/22/18 Discharge Date: 12/23/18 Primary Care Provider: Chirag Oden in [place], [place] Disposition: ROUTINE DISCHARGE Discharge Condition: GOOD Reason for Admission: Fever, fatigue, shortness of breath Consultations: None Procedures: CXR: FINDINGS: Portable technique limits examination quality. Early/vague infiltrate is suspected in the right mid lung and right lung base compatible with pneumonia. The heart is mildly to moderately enlarged. The left lung is grossly clear. Follow up CXR: ECHO: Medical Problem List: Shortness of breath secondary to right middle and lower lobe pneumonia Acute renal injury likely related to medication Hypertension Diabetes mellitus type 2, [id number]-[id number] Brief History of Present Illness: 58-year-old male presented to the emergency room with fever, fatigue and shortness of breath. Patient with history of diabetes and hypertension. The patient reports that he was seen by his PCP recently. It was noted that he had a fever. There were concerned for infection. Patient also had cough, shortness of breath. There was also some mention of edema to the lower extremity. Fatigue was noted. He has had a mild cough with congestion. No sick contacts noted. He came to the ER as recommended by a PCP. In the ER patient evaluated. Vital signs stable. White count 8.3, hemoglobin stable. Platelet count of 413. Creatinine 1.67 with a GFR 47. Glucose 138. Lactic acid within normal range but pro calcitonin elevated at 15.5. Venous Doppler of the lower extremity negative. Chest x-ray showed right middle to lower lobe pneumonia. Patient was given IV fluids and antibiotic therapy in the emergency room. He was admitted for further evaluation and treatment. When I saw the patient the ER, he appeared comfortable. He did not look in any respiratory distress. Hospital Course: Patient presented with shortness of breath. He is found to have right middle and lower lobe pneumonia. Lactic acid within normal range. Pro calcitonin initially elevated but improved. Patient was admitted for observation. Patient received IV antibiotic therapy. Repeat chest x-ray showed stability. Patient received IV fluids as well. At discharge oxygen saturations within normal range. He is without any significant chest pain or shortness of breath. Strep test negative. Influenza test negative. Echocardiogram obtained. At discharge patient will continue with Augmentin 500 mg 1 pill twice daily for 7 days and add Zithromax 250 mg daily for 4 days. Patient may continue with Mucinex 600 mg 1 pill twice daily as needed for congestion and Tessalon Perles 100 mg 1 pill 3 times a day as needed for cough. Patient will continue with incentive spirometer. Patient will be provided albuterol 2 puffs 3 times a day as needed for shortness of breath. Recommend follow up with PCP in 1-2 weeks to follow up this hospitalization. Recommend to recheck chest x-ray in 2-4 weeks to monitor resolution. Patient had acute renal injury likely from dehydration and medication. Lisinopril hydrochlorothiazide was discontinued. Patient received IV fluids. Renal function improved with fluid hydration. Recommend to recheck lab-BMP in 1-2 weeks to monitor resolution. Patient with hypertension. Lisinopril hydrochlorothiazide discontinued due to acute renal failure. Carvedilol added for blood pressure control. At discharge he will continue with Coreg 6.25 mg 1 pill twice daily. Recommend to maintain blood pressures less than 150/80. Further adjustment can be done by his PCP. Patient with diabetes mellitus type 2, [id number]. Blood sugars remained stable. A1c obtained. At discharge he may continue with Glucophage 500 mg daily. Recommend to maintain blood sugars less 140 fasting and less than 200 after meals. Further adjustment can be done by his PCP. Vital Signs/Physical Exam: Temp Pulse Resp BP Pulse Ox 96.7 F L 86 16 156/81 H 98 12/22/18 23:27 12/22/18 23:27 12/22/18 23:27 12/22/18 23:27 12/22/18 23:27 General: Alert, In no apparent distress, Oriented x3, Cooperative HEENT: Atraumatic Neck: Supple Respiratory: Clear to auscultation bilaterally, Normal air movement, Other ( Minimal crackles to the right base) Cardiovascular: Normal pulses, Regular rate/rhythm Gastrointestinal: Normal bowel sounds, Soft and benign, Non-distended, No tenderness, No masses, No rebound, No guarding Musculoskeletal: No erythema, No tenderness, No warmth Integumentary: No tenderness/swelling, No erythema, No warmth, No cyanosis Neurological: Normal speech, Normal strength at 5/5 x4 extr, Normal tone, Normal affect Laboratory Data at Discharge: WBC 8.3 K/uL (4.3-10.9) 12/22/18 18:55 Hgb 14.0 g/dL (13.6-17.9) 12/22/18 18:55 Hct 39.9 % (39.6-49.0) 12/22/18 18:55 Plt Count 413 K/uL (152-406) H 12/22/18 18:55 PT 13.4 SECONDS (9.5-12.5) H 12/22/18 18:55 INR 1.14 12/22/18 18:55 APTT 33.9 SECONDS (24.3-36.9) 12/22/18 18:55 Sodium 144 mmol/L (136-145) 12/22/18 18:55 Potassium 3.7 mmol/L (3.5-5.1) 12/22/18 18:55 BUN 9 mg/dL (7-18) 12/22/18 18:55 Creatinine 1.67 mg/dL (0.55-1.3) H 12/22/18 18:55 Glucose 138 mg/dL (74-106) H 12/22/18 18:55 Total Bilirubin 0.6 mg/dL (0.2-1.0) 12/22/18 18:55 AST 16 U/L (15-37) 12/22/18 18:55 ALT 26 U/L (12-78) 12/22/18 18:55 Alkaline Phosphatase 92 U/L (45-117) 12/22/18 18:55 Lipase 65 U/L (73-393) L 12/22/18 18:55 Home Medications: Metformin HCl [Metformin ER Osmotic] 500 mg PO DAILY 04/13/17 Albuterol Sulfate [Proair Hfa] 2 puff IH TID PRN #1 hfa.aer.ad 12/23/18 Amoxicillin/Potassium Clav [Augmentin 500-125 Tablet] 1 each PO BID #14 tablet 12/23/18 Azithromycin Tab [Zithromax*] 250 mg PO DAILY #5 tab 12/23/18 Benzonatate [Tessalon Perle*] 100 mg PO TID PRN #10 cap 12/23/18 Carvedilol [Coreg] 6.25 mg PO BID #60 tab 12/23/18 Guaifenesin [Mucinex] 600 mg PO BID PRN #10 tab.er.12h 12/23/18 New Medications: Albuterol Sulfate [Proair Hfa] 2 puff IH TID PRN #1 hfa.aer.ad PRN Reason: Shortness Of Breath Amoxicillin/Potassium Clav [Augmentin 500-125 Tablet] 1 each PO BID #14 tablet Azithromycin Tab [Zithromax*] 250 mg PO DAILY #5 tab Benzonatate [Tessalon Perle*] 100 mg PO TID PRN #10 cap PRN Reason: Cough Carvedilol [Coreg] 6.25 mg PO BID #60 tab Guaifenesin [Mucinex] 600 mg PO BID PRN #10 tab.er.12h PRN Reason: Cough Patient Discharge Instructions: 1. Recommend follow up with his PCP in 1 week to follow up this hospitalization. 2. Patient presented with shortness of breath. He is found to have right middle and lower lobe pneumonia. Lactic acid within normal range. Pro calcitonin initially elevated but improved with treatment. Patient was admitted for observation. Patient received IV antibiotic therapy. Repeat chest x-ray showed stability. Patient received IV fluids as well. At discharge oxygen saturations within normal range. He is without any significant chest pain or shortness of breath. Strep test negative. Influenza test negative. Echocardiogram obtained. At discharge patient will continue with Augmentin 500 mg 1 pill twice daily for 7 days and add Zithromax 250 mg daily for 4 days. Patient may continue with Mucinex 600 mg 1 pill twice daily as needed for congestion and Tessalon Perles 100 mg 1 pill 3 times a day as needed for cough. Patient will continue with incentive spirometer. Patient will be provided albuterol 2 puffs 3 times a day as needed for shortness of breath. Recommend follow up with PCP in 1-2 weeks to follow up this hospitalization. Recommend to recheck chest x-ray in 2-4 weeks to monitor resolution. 3. Patient had acute renal injury likely from dehydration and medication. Lisinopril hydrochlorothiazide was discontinued. Patient received IV fluids. Renal function improved with fluid hydration. Recommend to recheck lab-BMP in 1-2 weeks to monitor resolution. 4. Patient with hypertension. Lisinopril hydrochlorothiazide discontinued due to acute renal failure. Carvedilol added for blood pressure control. At discharge he will continue with Carvedilol 6.25 mg 1 pill twice daily. Recommend to maintain blood pressures less than 150/80. Further adjustment can be done by his PCP. 5. Patient with diabetes mellitus type 2, [id number]-[id number]. Blood sugars remained stable. A1c obtained. At discharge he may continue with Glucophage 500 mg daily. Recommend to maintain blood sugars less 140 fasting and less than 200 after meals. Further adjustment can be done by his PCP. Diet: ADA Activity: Ad kelly Time spent managing pt's care (in minutes): 55
[2018-12-23 05:37] LABS: Urine Appearance CLEAR; Urine Bilirubin NEGATIVE (NEG); Urine Blood NEGATIVE (NEG); Urine Color YELLOW; Urine Glucose NEGATIVE (NEG); Urine Protein NEGATIVE (NEG); Urine Specific Gravity <=1.005 (1.005-1.030); Urine Urobilinogen 0.2 mg/dL (0.2-1.0)
[2018-12-23 05:42] LABS: Urine Microscopic Reflex NO UMIC
[2018-12-23] MEDS ORDERED: CARVEDILOL 3.125 MG TAB PO SCH (06:00)
[2018-12-23 06:04] LABS: Absolute Lymphocytes (CBC) 1.2 K/uL (0.7-4.9); Basophils % 0.6 % (0-1.3); Hematocrit 33.1 % (39.6-49.0); Lymphocytes % 18.1 % (15.3-44.8); MPV 7.8 fL (7.6-11.3); RBC Red Blood Cell Count 3.61 M/uL (4.33-5.43)
[2018-12-23 06:20] LABS: Magnesium 1.6 mg/dL (1.8-2.4); Potassium 3.5 mmol/L (3.5-5.1)
[2018-12-23] MEDS: INSULIN -REGULAR HUMAN 50 UNIT/0.5 ML ML SQ SCH ×4 (07:30→21:00)
[2018-12-23] MEDS: ENOXAPARIN 40 MG/0.4 ML SQ SCH (08:07)
[2018-12-23] MEDS: FAMOTIDINE 20 MG TAB PO SCH ×2 (08:08→19:59)
[2018-12-23] MEDS: CEFTRIAXONE/SWI 1gm 1 GM/10 ML SYR IV SCH ×2 (08:08→19:58)
--- NOTE | 2018-12-23 08:34 | RAD REPORT ---
EXAM DESCRIPTION: RAD - Chest Pa And Lat (2 Views) - 12/23/2018 7:57 am CLINICAL HISTORY: Follow up chest x-ray, pneumonia Chest pain. COMPARISON: Chest Single View dated 12/22/2018; Chest Single View dated 04/13/2017; Chest Pa And Lat ( 2 Views) dated 02/10/2017 FINDINGS: Since 12/22/2018, mild improvement is seen in right mid lung infiltrate. Loculated small r ight pleural effusion noted. The heart is moderately enlarged in size. Multiple chronic wedge will yves deformities noted. IMPRESSION: Mild improvement is seen in right mid lung infiltrate since comparative study.
[2018-12-23] MEDS ORDERED: POTASSIUM CL SA 10 MEQ TAB PO ONE (09:00)
[2018-12-23] MEDS ORDERED: CEFTRIAXONE 1 GM/NS 50 ML 1 GM/50 ML BAG IV SCH (09:00)
[2018-12-23] MEDS ORDERED: MAGNESIUM SULFATE 1 gm IVPB 1 GM/100 ML BAG IV ONE (09:00)
[2018-12-23] MEDS: NACHLORIDE 0.45% 1,000 ML IV SCH ×3 (10:20→23:58)
[2018-12-23] MEDS: AZITHROMYCIN IV 500 MG in NA CHLORIDE 0.9% 250 ML IVPB SCH (10:21)
--- NOTE | 2018-12-23 16:57 | EKG ---
Test Date: 2018-12-22 Test Time: 18:59:01 [place] Attorney: ABNER MEASUREMENT RESULTS: Intervals: Rate: 94 HI: 148 QRSD: 74 QT: 360 QTc: 450 [place]: P: 26 HI: 148 QRS: -20 T: 9 INTERPRETIVE STATEMENTS: Normal sinus rhythm Normal ECG Compared to ECG 01/31/2018 11:05:35 T-wave abnormality no longer present Prolonged QT interval no longer present Electronically Signed On 12-23-18 16:55:22 CDT by Henok Farias
[2018-12-23] MEDS: CARVEDILOL 3.125 MG TAB PO SCH (17:40)
[2018-12-23 21:10] VITALS: O2SAT 95
--- NOTE | 2018-12-24 02:13 | CON ---
Date of Consultation: 12/23/[address] Palacios' service on 12/22/2018, I saw the patient on 12/23/2018. Reason For Consultation: Congestive heart failure. History Of Present Illness: Mr. Lanza is a 58-year-old Latin[place] male. He has diabetes, hyper tension, asthma, ejection fraction of 19% in 2017, lost to follow up, comes in with fever. Echocardi ogram reconfirmed severe congestive heart failure. The patient is now on carvedilol and antibiotics for possible pneumonia. The patient actually denied have any CHF symptoms. Denied PND, orthopnea, p edal edema, palpitation, or syncope. Denied any chest pain. Allergies: NONE. Review of Systems: Negative. Social History: Positive for alcohol. Medications: At home are supposed to be metformin, Coreg, and inhalers. Family History: Noncontributory. Physical Examination: General: He was in normal sinus rhythm. Normal blood pressure. Afebrile. HEENT: Negative. Neck: Supple. No bruit. Chest: Reveals some rales on both bases. Cardiac: Revealed an S3 gallops. Regular rhythm and rate. Abdomen: Benign. Extremities: Revealed no clubbing, cyanosis. He had 1+ edema. Diagnostic Data: His CPKs, MBs, and troponin were negative. Magnesium was 1.6, creatinine 1.67 down to 1.14, glucose was 143. Procalcitonin was 15.59. Impression And Plan: Chronic systolic congestive heart failure. Patient needs to be on Coreg, needs to be on Lasix, needs to be on DENNIS inhibitor. He really should have a stress test as an outpatient and possibly heart catheterization to evaluate his coronary anatomy. I am not so sure he is going to be very compliant with his medication. He needs to watch his salt intake, quit alcohol completely. I agree with his antibiotics regimen for now. His magnesium is being supplemented. His kidney func tion we need to watch carefully. His diabetes is fairly well controlled and so is his hypertension. We will continue to follow him. ANN-MARIE/ALONSO Voice ID: [id number] Report ID: [id number]
[2018-12-24] MEDS: CARVEDILOL 3.125 MG TAB PO SCH (06:20)
[2018-12-24 07:09] LABS: BUN Blood Urea Nitrogen 6 mg/dL (7-18); Bicarbonate 26 mmol/L (21-32); Glucose Level 79 mg/dL (74-106); Magnesium 1.5 mg/dL (1.8-2.4); Potassium 3.4 mmol/L (3.5-5.1); Sodium Level 144 mmol/L (136-145)
[2018-12-24] MEDS ORDERED: MAGNESIUM SULFATE 1 gm IVPB 1 GM/100 ML BAG IV ONE (07:17)
[2018-12-24] MEDS: INSULIN -REGULAR HUMAN 50 UNIT/0.5 ML ML SQ SCH (07:30)
--- NOTE | 2018-12-24 08:06 | ECHO ---
HEIGHT: 5 ft 6 in WEIGHT: 165 lb 9.6 oz DATE OF STUDY: 12/23/[address]: Dallas Palacios DO 2-DIMENSIONAL: YES M.MODE: YES DOPPLER: YES COLOR FLOW: YES TDS: NO PORTABLE: NO DEFINITY: NO BUBBLE STUDY: NO DIAGNOSIS: SHORTNESS OF BREATH CARDIAC HISTORY: CATHERIZATION: NO SURGERY: NO PROSTHETIC VALVE: NO PACEMAKER: NO MEASUREMENTS (cm) DIASTOLIC (NORMALS) SYSTOLIC (NORMALS) IVSd 1.1 (0.6-1.2) LA Diam 4.4 (1.9-4.0) LVEF 25-30% LVIDd 5.5 (3.5-5.7) LVIDs 5.0 (2.0-3.5) %FS 10% LVPWd 1.1 (0.6-1.2) Ao Diam 2.6 (2.0-3.7) 2 DIMENSIONAL ASSESSMENT: RIGHT ATRIUM: NORMAL LEFT ATRIUM: NORMAL RIGHT VENTRICLE: NORMAL LEFT VENTRICLE: NORMAL TRICUSPID VALVE: NORMAL MITRAL VALVE: NORMAL PULMONIC VALVE: NORMAL AORTIC VALVE: NORMAL PERICARDIAL EFFUSION: NONE AORTIC ROOT: NORMAL LEFT VENTRICULAR WALL MOTION: SEVERE GLOBAL HYPOKINESIS. DOPPLER/COLOR FLOW: MILD MITRAL AND TRICUSPID REGURGITATION. COMMENTS: SEVERE GLOBAL HYPOKINESIS. NORMAL LEFT VENTRICULAR EJECTION FRACTION 25-30%. LEFT ATRIAL ENLARGEMENT. NO THROMBUS. MILD MITRAL AND TRICUSPID REGURGITATION. TECHNOLOGIST: Stella NUNO
[2018-12-24] MEDS: FAMOTIDINE 20 MG TAB PO SCH (08:14)
[2018-12-24] MEDS: ENOXAPARIN 40 MG/0.4 ML SQ SCH (08:16)
[2018-12-24] MEDS: CEFTRIAXONE/SWI 1gm 1 GM/10 ML SYR IV SCH (08:17)
[2018-12-24] MEDS ORDERED: POTASSIUM 25 MEQ EFFERV TAB PO SCH (09:00)
[2018-12-24 09:39] VITALS: BP 140/83; TEMP 97.2
[2018-12-24] MEDS: AZITHROMYCIN IV 500 MG in NA CHLORIDE 0.9% 250 ML IVPB SCH (09:49)
--- NOTE | 2018-12-24 17:03 | PN ---
Reason For Consultation: Chronic systolic congestive heart failure with an ejection fraction about 1 5%. Apparently, this has been a chronic issue since at least 2017. Patient had been lost to follow up. He is feeling much better today after diuresis. He should definitely go home on carvedilol, DENNIS inhibitor, low-dose Lasix, watch his salt intake. Patient needs to follow up with the construction area manager in the next 2 weeks and have close followup and further care. Certainly doing a Lexiscan later and m ay be a catheterization would be reasonable. 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 All this was discussed with the patient. He will make a decision after he goes home. ANN-MARIE/ALONSO Voice ID: [id number] Report ID: [id number]
== END 2018-12-24 13:00 | disposition home or self-care (01) | DRG 194 ==
LOC: ER 16:39 → ERHOLD 22:13 → 4TH 23:00 → OBSVTOIN 12-24 08:58
PROVIDERS: ADMIT Family Medicine; ATTEND Family Medicine
DX: J18.9 Pneumonia, unspecified organism (principal); N17.9 Acute kidney failure, unspecified; I50.22 Chronic systolic (congestive) heart failure; E11.9 Type 2 diabetes mellitus without complications; I11.0 Hypertensive heart disease with heart failure
CPT/HCPCS: 36415; 71045; 71046; 80048; 80076; 81003; 81015; 82550; 82553; 82962; 83036; 83605; 83690; 83735; 84145; 84484; 85025; 85610; 85730; 87040; 87070; 87081; 87086; 87088; 87804; 93005; 93306; 93970; 96361; 96365; 96368; 99285; G0378; J0456; J0696; J1650; J3475; J7030